=== PATIENT | male | born 1990 | race Hispanic/Latino ===

== ENCOUNTER 2017-12-26 21:00 | Inpatient (IN) | payer MEDICAID, OTHER ==
[2017-12-26 21:01] VITALS: BMI 23.5
[2017-12-26 23:37] LABS: BASO % 0.4 % (0.0-2.0); EOS % 0.1 % (0.0-4.0); HEMOGLOBIN 14.5 g/dL (12.0-18.0); LYMPH # 1.3 K/uL (1.0-4.3); LYMPH % 21.5 % (20.0-40.0); MEAN CORPUSCULAR HEMOGLOBIN 30.4 pg (27.0-31.0); MEAN CORPUSCULAR HGB CONC 34.5 g/dL (33.0-37.0); MEAN PLATELET VOLUME 9.4 fL (7.2-11.7); MONO # 0.5 K/uL (0.0-0.8); MONO % 7.8 % (0.0-10.0); NEUT # 4.3 K/uL (1.8-7.0); NEUT % 70.2 % (50.0-75.0); RBC 4.77 Mil/uL (4.40-5.90); URINE BILIRUBIN NEGATIVE (NEGATIVE); URINE BLOOD NEGATIVE (NEGATIVE); URINE CLARITY Clear (Clear); URINE COLOR Yellow (YELLOW); URINE GLUCOSE (UA) NORMAL (Normal); URINE LEUKOCYTE ESTERASE NEG Leu/uL (Negative); URINE NITRATE NEGATIVE (NEGATIVE); URINE PROTEIN NEGATIVE (NEGATIVE); WHITE BLOOD COUNT 6.1 K/uL (4.8-10.8)
[2017-12-26 23:48] LABS: BARBITURATES, UR NEGATIVE (NEGATIVE); BENZODIAZEPINES, UR NEGATIVE (NEGATIVE); OPIATES, UR NEGATIVE (NEGATIVE); PHENCYCLIDINE, UR NEGATIVE (NEGATIVE)
[2017-12-26 23:51] LABS: ALB/GLOB RATIO 1.2 (1.0-2.1); ALBUMIN 4.4 g/dL (3.5-5.0); ALT/SGPT 31 U/L (21-72); AST/SGOT 18 U/L (17-59); BLOOD UREA NITROGEN 12 mg/dL (9-20); CALCIUM 9.2 mg/dl (8.6-10.4); GFR AFRICAN-AMERICAN > 60; GFR NON-AFRICAN AMERICAN > 60
--- NOTE | 2017-12-27 00:25 | C.PDOC ---
History Of Present Illness Pt states he has stopped taking his haldol about a month ago and has been hearing voices, and felt like he wants to jump in front of a car. denies any homicidal ideation. Pleasant and cooperative Time Seen by Provider: 12/27/17 00:25 Chief Complaint (Nursing): Psychiatric Evaluation History Per: Patient History/Exam Limitations: no limitations Onset/Duration Of Symptoms: Days Current Symptoms Are (Timing): Still Present Suicide/Self Injury Attempted (Context): None Modifying Factor(s): None Severity: Moderate Pain Scale Rating Of: 4 Associated Symptoms: Depression, Paranoia Involuntary Hold By: None Recent travel outside of the [place]: No Additional History Per: Patient Past Medical History Reviewed: Historical Data, Nursing Documentation, Vital Signs Vital Signs: Last Vital Signs Temp 102.9 F H 12/26/17 22:22 Pulse 112 H 12/26/17 22:22 Resp 22 12/26/17 22:22 BP 116/80 12/26/17 22:22 Pulse Ox 98 12/27/17 00:28 - Medical History PMH: Asthma, Depression, Paranoia, Schizophrenia Denies: Diabetes, Hepatitis, HIV, HTN, Chronic Kidney Disease, Seizures, Sexually Transmitted Disease - [facility] PSYCHIAT DRUG THERAP NEC (05/11/14) Family History: States: No Known Family Hx - Social History Hx Tobacco Use: No Hx Alcohol Use: No Hx Substance Use: Yes - Immunization History Hx Tetanus Toxoid Vaccination: No Hx Influenza Vaccination: No Hx Pneumococcal Vaccination: No Review Of Systems Constitutional: Negative for: Fever, Chills ENT: Negative for: Throat Pain Cardiovascular: Negative for: Chest Pain Respiratory: Negative for: Shortness of Breath Gastrointestinal: Negative for: Nausea Musculoskeletal: Negative for: Back Pain Skin: Negative for: Rash Neurological: Negative for: Headache Psych: Positive for: Depression Physical Exam - Physical Exam Appears: Non-toxic, No Acute Distress Skin: Warm, Dry Head: Normacephalic Eye(s): bilateral: Normal Inspection Oral Mucosa: Moist Neck: Supple Chest: Symmetrical Cardiovascular: Rhythm Regular Respiratory: No Rales, No Rhonchi, No Wheezing Gastrointestinal/Abdominal: Soft, No Tenderness, No Distention Back: Normal Inspection Extremity: Normal ROM Extremity: Bilateral: Atraumatic Neurological/Psych: Oriented x3, Normal Speech, Normal Cognition ED Course And Treatment - Laboratory Results Result Diagrams: 12/26/17 23:27 12/26/17 23:27 O2 Sat by Pulse Oximetry: 98 [address] D[address].: Fazal Richmond Comment: accepted the pt on his service and took over the care at 1:09 AM Counseled Patient/Family Regarding: Studies Performed, Diagnosis - Disposition Disposition: HOSPITALIZED Disposition Time: 00:25 Condition: FAIR Forms: [facility] ([place]) - POA Present On Arrival: None - Clinical Impression Clinical Impression: Paranoid schizophrenia Decision To Admit - Pt Status Changed To: Hospital Disposition Of: Inpatient - Admit Certification Admit to Inpatient:: After my assessment, the patient will require hospitalization for at least two midnights. This is because of the severity of symptoms shown, intensity of services needed, and/or the medical risk in this patient being treated as an outpatient. - InPatient: Physician Admission Certification: I certify that this patient requires 2 or more midnights of care for the following reason:: After my assessment, the patient will require hospitalization for at least two midnights. This is because of the severity of symptoms shown, intensity of services needed, and/or the medical risk in this patient being treated as an outpatient. - . Bed Request Type: Psychiatry Admitting Physician: Fazal Richmond Patient Diagnosis: Paranoid schizophrenia
--- NOTE | 2017-12-27 02:29 | PCM.BM ---
<Jamia Manzanares - Last Filed: 12/27/17 02:27> Treatment Plan Problems - Problems identified on initial assessmt Suicidal Ideation Date Initiated: 12/27/17 Time Initiated: 02:30 Assessment reference: NA Status: Active Auditory Hallucinations Date Initiated: 12/27/17 Time Initiated: 02:30 Assessment reference: NA Status: Active Treatment assets and liabiliti Patient Assests: cooperative, ADL independent, negotiates basic needs Patient Liabilities: financial problems, poor support system - Milieu Protocol Maintain good personal hygiene: daily Encourage regular showers, daily Remind patient to perform daily oral care, daily Assist patient to perform ADL's Conduct patient checks and document Observation sheet: Q15 minutes Maintain personal safety: every shift Educate patient to report safety concerns to staff, every shift Monitor environment for contraband/sharps Medication safety: Monitor for expected outcome, potential side effects: every shift, Assess barriers to learning: every shift, Assess readiness for medication education: every shift <Mirtha Murdock - Last Filed: 12/31/17 10:43> Family Contact Family involvement: Famliy/SO not involved - Goals for Treatment Patient goals for treatment: "I need medication." Discharge/Continuing Care - Education Needs Education Needs: Patient Medication, Patient Coping Skills, Patient Placement options, Patient Community resources - Discharge Discharge Criteria: Tolerates medication w/o severe side effects, Reduction of target symptoms Discharge to:: Senior Living - Treatment Team Participation Discussed with Family/SO: No Was Patient/Family/SO present at Treatment Team Meeting: Yes <Zakia Weinberg - Last Filed: 12/31/17 10:44> - Diagnosis (1) Paranoid schizophrenia Status: Acute Interventions: 12/31/17 10:44 * Assess/adjust medications daily and /or as needed * See patient on an individual basis 7x/week to assess status of hallucinations * Discuss risks, benefits, side effects and alternatives of medications *
--- NOTE | 2017-12-27 11:44 | PCM.PSYCH ---
Initial Psychiatric Evaluation - Initial Psychiatric Evaluation Type of Admission: Voluntary Legal Status: Capacity Chief Complaint (in patient's own words): "Depressed" History of Present Illness and Precipitating Events: The patient is seen, chart reviewed and case discussed. This is a 27-year-old male, single with no child, currently homeless and unemployed. He says he was living in [facility] recently. He says he is "getting worse." He reports hearing voices telling him to kill himself and also feeling paranoid. He currently denies any suicidal or homicidal ideation but looks somewhat internally preoccupied. He also reports depressive symptoms but he states they are not to backs. He smokes marijuana and denies alcohol, cigarettes and other drugs. He is noncompliant with his medications. He was here in 2016 and was put on Risperdal. Past psych history: Diagnosed with schizophrenia or schizoaffective disorder. Admitted to psychiatry 3 times and had one suicide attempt when he was 22 years old by cutting his wrist. Family psych history: Mother also has schizophrenia. Medical history: Asthma Current Medications: Active Medications Generic Name Dose Route Start Last Admin Trade Name Freq PRN Reason Stop Dose Admin Benztropine Mesylate 0.5 mg 12/27/17 10:00 12/27/17 10:04 Cogentin PO 0.5 mg BID MARY Administration Haloperidol 5 mg 12/27/17 08:53 Haldol PO Q1H PRN agitation, max 4x/24h Hydroxyzine HCl 50 mg 12/27/17 08:53 Atarax PO Q4H PRN Anxiety Ibuprofen 600 mg 12/27/17 08:53 Motrin Tab PO Q6H PRN Pain, moderate (4-7) Pneumococcal Polyvalent Vaccine 0.5 ml 12/30/17 10:00 Pneumovax 23 Vaccine IM 12/30/17 10:01 .ONCE ONE Risperidone 1 mg 12/27/17 10:00 12/27/17 10:04 Risperdal Tab PO 1 mg BID MARY Administration Trazodone HCl 100 mg 12/27/17 08:53 Desyrel PO HS PRN Insomnia Past Psychiatric History - Past Psychiatric History Previous Treatment History: Inpatient Pertinent Medical Hx (Current Medical&Sleep Prob, Allergies): Allergies Allergy/AdvReac Type Severity Reaction Status Date / Time shrimp Allergy Verified 02/09/18 22:26 Benztropine [Cogentin] 1 mg PO QPM #30 tab 08/21/16 risperiDONE [RisperDAL Tab] 3 mg PO QPM #30 tab 08/21/16 Review of Systems - Psychiatric Psychiatric: Abnormal Sleep Pattern, Anhedonia, Anxiety, Behavioral Changes, Depression, Difficulty Concentrating, Hallucinations, Mood Swings, Paranoia. absent: Homicidal Ideation, Suicidal Ideation Mental Status Examination - Personal Presentation Personal Presentation: Looks stated age - Affect Affect: Blunted - Motor Activity Motor Activity: Calm - Reliability in Providing Information Reliability in Providing Information: Good - Speech Speech: Organized - Mood Mood: Depressed, Anxious - Formal Thought Process Formal Thought Process: Hallucinations, Paranoia - Cognitive Functions Orientation: Person, Place, Situation, Time Sensorium: Drowsy Attention/Concentration: Easily distracted Abstract Thinking: [place] Estimate of Intelligence: Below average Judgement: Intact, as evidence by: Insight regarding need for hospitalization Memory: Recent intact, as evidence by: Ability to recall events of the day, Remote intact, as evidenced by: Abilit to recall sig. life events - Risk Risk: Diminished functioning - Strength & Assets Inventory Strength & Assets Inventory: Cooperative - Limitations Limitations: Living alone DSM 5 DX - DSM 5 DSM 5 Diagnosis: schizoaffective disorder-depressed Cannabis use disorder, severe - Recommended/Plan of Treatment Treatment Recommendations and Plan of Treatment: Risperdal and Cogentin for psychosis Lexapro for depression As needed medications All risks, benefits and alternatives of the meds discussed, and the pt agreed and understood. Attend groups and activities Supportive therapy and psychoeducation [place] for abstinence CBT for relapse prevention Encourage MAT Refer to rehab or IOP, and self-help groups 34 min Projected ELOS: 5 days Prognosis: good with treatment
[2017-12-27] MEDS ORDERED: Albuterol HFA 90 mcg/actuation (8 g) INH PRN (13:06)
--- NOTE | 2017-12-28 13:27 | PCM.PYCHPN ---
Psychiatric Progress Note - Psychiatric Progress Note Patient seen today, length of contact: 16 min Patient Chief Complaint: "Not good" Problems Identified/Issues Discussed: The pt is seen, chart reviewed, case discussed with staff. The pt is compliant with medications and reports no side-effects. Symptoms are improving but needs more time to stabilize. still very isolated, odd After care discussed, support and psychoeducation given. Medication Change: Yes (increase risperdal to 3 mg/d) Medical Record Reviewed: Yes Mental Status Examination - Cognitive Function Orientation: Person, Place, Situation, Time Memory: Impaired Attention: Poor Concentration: Poor Association: WNL Fund of Knowledge: Poor - Mood Mood: Depressed, Anxious - Affect Affect: Blunted - Speech Speech: Appropriate - Formal Thought Process Formal Thought Process: Hallucinations, Paranoia - Suicidal Ideation Suicidal Ideation: No - Homicidal Ideation Homicidal Ideation: No Goal/Treatment Plan - Goal/Treatment Plan Need for Continued Stay: Discharge may exacerbated symptoms, Severe functional impairment Progress Toward Problem(s) and Goals/Treatment Plan: Risperdal and Cogentin for psychosis Lexapro for depression As needed medications All risks, benefits and alternatives of the meds discussed, and the pt agreed and understood. Attend groups and activities Supportive therapy and psychoeducation [place] for abstinence CBT for relapse prevention Encourage MAT Refer to rehab or IOP, and self-help groups
--- NOTE | 2017-12-29 11:31 | PCM.PYCHPN ---
Psychiatric Progress Note - Psychiatric Progress Note Patient seen today, length of contact: 16 min Problems Identified/Issues Discussed: Patient seen and evaluated, chart reviewed and discussed with the nurse. Patient remained disorganized and internally preoccupied. Patient remained isolated, confined and withdrawn. He still reports of hearing voices. Patient still appears paranoid and delusional. He reports depressed mood and feelings of hopelessness and helplessness. Patient is compliant with medications and denies any side effects. Symptoms are improving but need more time to stabilize. Support and psychoeducation given. Medication Change: Yes (increase risperdal to 3 mg/d) Medical Record Reviewed: Yes Mental Status Examination - Cognitive Function Orientation: Person, Place, Situation, Time Memory: Impaired Attention: Poor Concentration: Poor Association: WNL Fund of Knowledge: Poor - Mood Mood: Depressed, Anxious - Affect Affect: Blunted - Speech Speech: Appropriate - Formal Thought Process Formal Thought Process: Hallucinations, Paranoia - Suicidal Ideation Suicidal Ideation: No - Homicidal Ideation Homicidal Ideation: No Goal/Treatment Plan - Goal/Treatment Plan Need for Continued Stay: Discharge may exacerbated symptoms, Severe functional impairment Progress Toward Problem(s) and Goals/Treatment Plan: Schizoaffective disorder-depressed Cannabis use disorder, severe Risperdal and Cogentin for psychosis Lexapro for depression As needed medications All risks, benefits and alternatives of the meds discussed, and the pt agreed and understood. Attend groups and activities Supportive therapy and psychoeducation CBT Encourage MAT
[2017-12-30] MEDS ORDERED: Pneumococcal 23-Valent Vaccine IM ONE (10:00)
[2017-12-30] MEDS ORDERED: Influenza Vaccine 60 mcg/0.5 mL SYR (4YR UP) IM ONE (10:00)
--- NOTE | 2017-12-30 15:14 | PCM.PYCHPN ---
Psychiatric Progress Note - Psychiatric Progress Note Patient seen today, length of contact: 16 min Patient Chief Complaint: "I'm feeling better, but still depressed. I'm still hearing voices off and on that tell me to hurt myself, but they stop after I take the medication." Problems Identified/Issues Discussed: Patient seen and evaluated, chart reviewed and discussed with the nurse. As per the staff, Patient remained isolated, confined and withdrawn. He remained disorganized and internally preoccupied. He still appears paranoid and delusional and reports of hearing voices. He reports depressed mood and feelings of hopelessness and helplessness. Patient is compliant with medications and denies any side effects. Symptoms are improving but need more time to stabilize. Support and psychoeducation given. Medication Change: Yes (increase risperdal to 3 mg/d) Medical Record Reviewed: Yes Mental Status Examination - Cognitive Function Orientation: Person, Place, Situation, Time Memory: Impaired Attention: Poor Concentration: Poor Association: WNL Fund of Knowledge: Poor - Mood Mood: Depressed, Anxious - Affect Affect: Blunted - Speech Speech: Appropriate - Formal Thought Process Formal Thought Process: Hallucinations, Paranoia - Suicidal Ideation Suicidal Ideation: No - Homicidal Ideation Homicidal Ideation: No Goal/Treatment Plan - Goal/Treatment Plan Need for Continued Stay: Discharge may exacerbated symptoms, Severe functional impairment Progress Toward Problem(s) and Goals/Treatment Plan: Risperdal 3 mg PO QHS Cogentin 1 mg PO QHS Lexapro for depression As needed medications All risks, benefits and alternatives of the meds discussed, and the pt agreed and understood. Attend groups and activities Supportive therapy and psychoeducation [place] for abstinence CBT for relapse prevention Encourage MAT Refer to rehab or IOP, and self-help groups - Smoking Cessation Smoking Cessation Initiated: No
--- NOTE | 2017-12-31 10:44 | PCM.PYCHPN ---
Psychiatric Progress Note - Psychiatric Progress Note Patient seen today, length of contact: 16 min Patient Chief Complaint: "I'm still hearing voices off and on that tell me to hurt myself." Problems Identified/Issues Discussed: Patient seen and evaluated, chart reviewed and discussed with the nurse. Patient remained disorganized and internally preoccupied. He still reports of hearing voices and still appears paranoid and delusional. He reports depressed mood and feelings of hopelessness and helplessness. Patient remained isolated, confined and withdrawn. Pt met with the treatment team today and aftercare was discussed. Patient is compliant with medications and denies any side effects. Symptoms are improving but need more time to stabilize. Support and psychoeducation given. Medication Change: Yes (increase risperdal to 3 mg HS and I mg po Daily) Medical Record Reviewed: Yes Mental Status Examination - Cognitive Function Orientation: Person, Place, Situation, Time Memory: Impaired Attention: Poor Concentration: Poor Association: WNL Fund of Knowledge: Poor - Mood Mood: Depressed, Anxious - Affect Affect: Blunted - Speech Speech: Appropriate - Formal Thought Process Formal Thought Process: Hallucinations, Paranoia - Suicidal Ideation Suicidal Ideation: No - Homicidal Ideation Homicidal Ideation: No Goal/Treatment Plan - Goal/Treatment Plan Need for Continued Stay: Discharge may exacerbated symptoms, Severe functional impairment Progress Toward Problem(s) and Goals/Treatment Plan: Schizoaffective disorder-depressed Cannabis use disorder, severe Increase Risperdal and Cogentin for psychosis Lexapro for depression As needed medications All risks, benefits and alternatives of the meds discussed, and the pt agreed and understood. Attend groups and activities Supportive therapy and psychoeducation CBT Encourage MAT - Smoking Cessation Smoking Cessation Initiated: No
--- NOTE | 2018-01-01 10:47 | PCM.PYCHPN ---
Psychiatric Progress Note - Psychiatric Progress Note Patient seen today, length of contact: 16 min Patient Chief Complaint: "I'm feeling better, but still depressed. I'm still hearing voices off and on that tell me to hurt myself, but they stop after I take the medication." Problems Identified/Issues Discussed: Patient seen and evaluated, chart reviewed and discussed with the nurse. As per the staff, Patient remained isolated, confined and withdrawn. He remained disorganized and internally preoccupied. He still appears paranoid and delusional and reports of hearing voices. He reports depressed mood and feelings of hopelessness and helplessness. Patient is compliant with medications and denies any side effects. Symptoms are improving but need more time to stabilize. Support and psychoeducation given. Medication Change: Yes (increase risperdal to 3 mg/d) Medical Record Reviewed: Yes Mental Status Examination - Cognitive Function Orientation: Person, Place, Situation, Time Memory: Impaired Attention: Poor Concentration: Poor Association: WNL Fund of Knowledge: Poor - Mood Mood: Depressed, Anxious - Affect Affect: Blunted - Speech Speech: Appropriate - Formal Thought Process Formal Thought Process: Hallucinations, Paranoia - Suicidal Ideation Suicidal Ideation: No - Homicidal Ideation Homicidal Ideation: No Goal/Treatment Plan - Goal/Treatment Plan Need for Continued Stay: Discharge may exacerbated symptoms, Severe functional impairment Progress Toward Problem(s) and Goals/Treatment Plan: CBT for relapse prevention Encourage MAT [place] for abstinence Refer to rehab or IOP, and self-help groups Supportive therapy and psychoeducation As needed medications All risks, benefits and alternatives of the meds discussed, and the pt agreed and understood. Attend groups and activities Risperdal 3 mg PO QHS Increase Risperdal 1 mg P ODaily Cogentin 1 mg PO QHS Lexapro 10 mg for depression Trazodone 100 mg po QHS Plan is to put pt on Invega alexandra
[2018-01-02 08:22] LABS: BASO # 0.1 K/uL (0.0-0.2); BASO % 0.5 % (0.0-2.0); EOS % 0.1 % (0.0-4.0); HEMOGLOBIN 14.5 g/dL (12.0-18.0); LYMPH # 1.2 K/uL (1.0-4.3); LYMPH % 10.6 % (20.0-40.0); MEAN CELL VOLUME 87.7 fL (80.0-94.0); MEAN CORPUSCULAR HEMOGLOBIN 30.1 pg (27.0-31.0); MEAN CORPUSCULAR HGB CONC 34.4 g/dL (33.0-37.0); MEAN PLATELET VOLUME 9.2 fL (7.2-11.7); MONO # 0.5 K/uL (0.0-0.8); MONO % 4.6 % (0.0-10.0); NEUT # 9.7 K/uL (1.8-7.0); NEUT % 84.2 % (50.0-75.0); RBC 4.82 Mil/uL (4.40-5.90); RED CELL DISTRIBUTION WIDTH 13.1 % (11.5-14.5); WHITE BLOOD COUNT 11.5 K/uL (4.8-10.8)
[2018-01-02 08:41] LABS: ALB/GLOB RATIO 1.2 (1.0-2.1); ALBUMIN 3.9 g/dL (3.5-5.0); ALT/SGPT 24 U/L (21-72); AST/SGOT 19 U/L (17-59); BLOOD UREA NITROGEN 10 mg/dL (9-20); CALCIUM 8.8 mg/dl (8.6-10.4); GFR AFRICAN-AMERICAN > 60; GFR NON-AFRICAN AMERICAN > 60
--- NOTE | 2018-01-02 10:29 | PCM.PYCHPN ---
Psychiatric Progress Note - Psychiatric Progress Note Patient seen today, length of contact: 16 min Patient Chief Complaint: "I'm feeling little better." Problems Identified/Issues Discussed: Patient seen and evaluated, chart reviewed and discussed with the nurse. Pt appeared more organized and less internally preoccupied. He appears less paranoid and less delusional but still reports of hearing voices. He reports some improvement in his mood and some improvement in the feelings of hopelessness and helplessness. He remained isolated and withdrawn. Patient is compliant with medications and denies any side effects. Symptoms are improving but need more time to stabilize. Support and psychoeducation given. Medication Change: Yes (increase risperdal) Medical Record Reviewed: Yes Mental Status Examination - Cognitive Function Orientation: Person, Place, Situation, Time Memory: Impaired Attention: Poor Concentration: Poor Association: WNL Fund of Knowledge: Poor - Mood Mood: Depressed, Anxious - Affect Affect: Blunted - Speech Speech: Appropriate - Formal Thought Process Formal Thought Process: Hallucinations, Delusions, Paranoia - Suicidal Ideation Suicidal Ideation: No - Homicidal Ideation Homicidal Ideation: No Goal/Treatment Plan - Goal/Treatment Plan Need for Continued Stay: Discharge may exacerbated symptoms, Severe functional impairment Progress Toward Problem(s) and Goals/Treatment Plan: CBT for relapse prevention Encourage MAT [place] for abstinence Refer to rehab or IOP, and self-help groups Supportive therapy and psychoeducation As needed medications All risks, benefits and alternatives of the meds discussed, and the pt agreed and understood. Attend groups and activities Risperdal 4 mg PO QHS Increase Risperdal 1 mg PO Daily Cogentin 1 mg PO QHS Lexapro 10 mg for depression Trazodone 100 mg po QHS Invega sustenna 156 mg I/M - Smoking Cessation Smoking Cessation Initiated: No
--- NOTE | 2018-01-02 19:42 | CP.PCM.CON ---
<Hira Esaclona - Last Filed: 01/02/18 21:34> History of Present Illness - History of Present Illness History of Present Illness: CC: Cough HPI: Patient is a 27 year old male with past medical history of asthma (last attack in 1999), questionable history of hyperthyroidism, Herpes (diagnosed in 2012), who was admitted to psychiatry unit for suicidal ideation and paranoia. Medicine consultation was placed for complaints of cough. During the encounter, patient reports 1 week history of progressively worsening nonproductive cough, accompanied by head/nasal congestion, headache, and fever to 100 F at home. Patient took Tylenol at home with good improvement in the headache. He did not get the influenza vaccine. Denies history of other recent illness. Patient has a history of asthma (last attack in 1999) for which he does not take medication at home. Otherwise he denies chills, chest pain, shortness of breath, abdominal pain, diarrhea, constipation, nausea, or vomiting. Patient notes that during a psychiatric admission 1 year ago, he was told that he has a problem with his thyroid but did not follow-up with a physician or take medication for it. PMH: asthma (last attack in 1999), questionable history of hyperthyroidism, Herpes (diagnosed in 2012) PSH: tonsillectomy at age 2-3 (no complications) Family History: no known history of heart disease, DM, HTN Medications: denies taking any medications at home besides Tylenol Allergies: Denies drug allergies; has allergy to shrimp Social History: currently homeless; no current or history of tobacco use; drinks "a few" 24oz beers a couple of times per month; uses marijuana 1x/month; denies other recreational drug use Review of Systems - Constitutional Constitutional: Fever. absent: Chills - EENT Eyes: absent: Blurred Vision, Change in Vision - Cardiovascular Cardiovascular: absent: Chest Pain, Chest Pain at Rest, Chest Pain with Activity , Dyspnea on Exertion, Lightheadedness, Orthopnea, Palpitations, Paroxysmal Nocturnal Dyspnea, Pedal Edema - Respiratory Respiratory: Cough. absent: Dyspnea, Wheezing, Chest Congestion, Excessive Mucous Production, Change in Mucous Color, Pain with Coughing - Gastrointestinal Gastrointestinal: absent: Abdominal Pain, Cramping, Diarrhea, Nausea, Vomiting - Neurological Neurological: absent: Dizziness - Psychiatric Psychiatric: Paranoia, Suicidal Ideation - Endocrine Endocrine: absent: Fatigue, Palpitations Past Patient History - Infectious Disease Hx of Infectious Diseases: None - Tetanus Immunizations Tetanus Immunization: Unknown - Past Social History Smoking Status: Never Smoked - CARDIAC Hx Cardiac Disorders: No Hx Hypertension: No - PULMONARY Hx Tuberculosis: No - NEUROLOGICAL HX Cerebrovascular Accident: No Hx Seizures: No - HEENT Hx HEENT Problems: No Hx Cataracts: No Hx Deafness: No Hx Difficulty Chewing: No Hx Epistaxis: No Hx Glaucoma: No Hx Macular Degeneration: No Hx Sinusitis: No - RENAL Hx Chronic Kidney Disease: No - ENDOCRINE/METABOLIC Hx Endocrine Disorders: No Hx Adrenal Cancer: No Hx Diabetes Insipidus: No Hx Diabetes Mellitus Type 1: No Hx Diabetes Mellitus Type 2: No Hx Hyperthyroidism: No Hx Hypothyroidism: No Hx Systemic Lupus Erythematosus: No - HEMATOLOGICAL/ONCOLOGICAL Hx Blood Disorders: No Hx Cancer: No Hx Human Immunodeficiency Virus (HIV): No - INTEGUMENTARY Hx Dermatological Problems: No Hx Basil Cell: No Hx Arora: No Hx Cellulitis: No Hx Eczema: No Hx Melanoma: No Hx Psoriasis: No Hx Squamous Cell: No - MUSCULOSKELETAL/RHEUMATOLOGICAL Hx Musculoskeletal Disorders: No Hx Arthritis: No Hx Back Pain: No Hx Degenerative Joint Disease: No Hx Falls: No Hx Fractures: No Hx Gout: No Hx Herniated Disk: No Hx Myasthenia Gravis: No Hx Osteoarthritis: No Hx Osteomyelitis: No Hx Osteoporosis: No Hx Rhabdomyolysis: No Hx Rheumatoid Arthritis: No Hx Spinal Stenosis: No Hx Unsteady Gait: No - GASTROINTESTINAL Hx Gastrointestinal Disorders: No Hx Colostomy: No Hx Gastroesophageal Reflux: No Hx Ileostomy: No Hx Liver Failure: No HX Swallowing Problems: No Hx Ulcer: No - GENITOURINARY/GYNECOLOGICAL Hx Sexually Transmitted Disorders: No - PSYCHIATRIC Hx Substance Use: Yes - SURGICAL HISTORY Hx Surgeries: No Hx Amputation: No Hx Cardiac Catheterization: No Hx Gastric Bypass Surgery: No Hx Hysterectomy: No Hx Joint Replacement: No Hx Kidney Transplant: No Hx Liver Transplant: No Hx Mastectomy: No Hx Musculoskeletal Surgery: No Hx Open Heart Surgery: No Hx Orthopedic Surgery: No Hx Splenectomy: No Hx Valve Replacement: No - ANESTHESIA Hx Anesthesia: No Meds Allergies/Adverse Reactions: Allergies Allergy/AdvReac Type Severity Reaction Status Date / Time shrimp Allergy Verified 12/26/17 22:26 - Medications Medications: Current Medications Acetaminophen (Tylenol 325mg Tab) 650 mg PO Q6 PRN PRN Reason: Fever >100.4 F Last Admin: 01/02/18 16:09 Dose: 650 mg Albuterol (Ventolin Hfa 90 Mcg/Actuation (8 G)) 1 puff INH RQ4 PRN PRN Reason: Wheezing Benztropine Mesylate (Cogentin) 0.5 mg PO BID [facility] Last Admin: 01/02/18 17:04 Dose: 0.5 mg Escitalopram Oxalate (Lexapro) 20 mg PO DAILY [facility] Last Admin: 01/02/18 10:33 Dose: 20 mg Fluticasone Propionate (Flonase) 1 spr ARTURO BID [facility] Haloperidol (Haldol) 5 mg PO Q1H PRN PRN Reason: agitation, max 4x/24h Hydroxyzine HCl (Atarax) 50 mg PO Q4H PRN PRN Reason: Anxiety Ibuprofen (Motrin Tab) 600 mg PO Q6H PRN PRN Reason: Pain, moderate (4-7) Last Admin: 01/01/18 23:01 Dose: 600 mg Risperidone (Risperdal Tab) 3 mg PO QPM [facility] Last Admin: 01/02/18 17:05 Dose: 3 mg Risperidone (Risperdal Tab) 1 mg PO DAILY [facility] Last Admin: 01/02/18 10:32 Dose: 1 mg Trazodone HCl (Desyrel) 100 mg PO HS PRN PRN Reason: Insomnia Physical Exam - Constitutional Appears: Well, No Acute Distress - Head Exam Head Exam: ATRAUMATIC, NORMAL INSPECTION - Eye Exam Eye Exam: EOMI, Normal appearance - ENT Exam ENT Exam: Mucous Membranes Moist - Respiratory Exam Respiratory Exam: Clear to Auscultation Bilateral, NORMAL BREATHING PATTERN. absent: Prolonged Expiratory Phase, Rhonchi, Wheezes, Respiratory Distress - Cardiovascular Exam Cardiovascular Exam: REGULAR RHYTHM, +S1, +S2 - GI/Abdominal Exam GI & Abdominal Exam: Normal Bowel Sounds, Soft. absent: Distended, Firm, Guarding, Hernia, Tenderness - Extremities Exam Extremities exam: Positive for: normal inspection. Negative for: calf tenderness, pedal edema, tenderness - Neurological Exam Neurological exam: Alert, Oriented x3 - Psychiatric Exam Psychiatric exam: Normal Affect, Normal Mood - Skin Skin Exam: Normal Color Results - Vital Signs Recent Vital Signs: Last Vital Signs Temp 98.7 F 01/02/18 16:30 Pulse 88 01/02/18 16:30 Resp 20 01/02/18 16:30 BP 108/78 01/02/18 16:30 Pulse Ox 100 01/02/18 16:30 - Labs Result Diagrams: 01/02/18 08:15 01/02/18 08:15 Labs: Laboratory Results - last 24 hr 01/02/18 01/02/18 01/02/18 08:15 08:15 16:15 WBC 11.5 H D RBC 4.82 Hgb 14.5 Hct 42.3 MCV 87.7 MCH 30.1 MCHC 34.4 RDW 13.1 Plt Count 196 MPV 9.2 Neut % (Auto) 84.2 H Lymph % (Auto) 10.6 L [place] % (Auto) 4.6 Eos % (Auto) 0.1 Baso % (Auto) 0.5 Neut # (Auto) 9.7 H Lymph # (Auto) 1.2 [place] # (Auto) 0.5 Eos # (Auto) 0.0 Baso # (Auto) 0.1 Sodium 135 Potassium 4.2 Chloride 98 Carbon Dioxide 26 Anion Gap 16 BUN 10 Creatinine 1.4 Est GFR ( Amer) > 60 Est GFR (Non-Af Amer) > 60 Random Glucose 106 Calcium 8.8 Total Bilirubin 0.7 AST 19 ALT 24 Alkaline Phosphatase 57 Total Protein 7.3 Albumin 3.9 Globulin 3.4 Albumin/Globulin Ratio 1.2 Influenza Typ A,B (EIA) Negative for flu a/b Assessment & Plan (1) Cough Assessment and Plan: With leukocytosis: 11.5, r/o pneumonia Imaging: Chest X-ray: f/u official report Labs: * F/u Legionella, Myco. Pneumoniae and strep pneumoniae and procalcitonin Medications: Avelox 400mg PO daily Albuterol RQ4H Flonase 1 spray BID Status: Acute (2) Leukocytosis Assessment and Plan: WBC: 11.5 Labs:F/u Legionella, Myco. Pneumoniae and strep pneumoniae and procalcitonin and blood culture Medications: Avelox 400mg PO daily Status: Acute (3) History of thyroid disease Assessment and Plan: F/u TSH Status: Acute (4) Schizophrenia Assessment and Plan: Pyschiatry, Dr. Weinbegr on board (Primary care team) * Management as per recommendation Status: Acute <Jayde Irene V - Last Filed: 01/03/18 10:13> Meds - Medications Medications: Current Medications Acetaminophen (Tylenol 325mg Tab) 650 mg PO Q6 PRN PRN Reason: Fever >100.4 F Last Admin: 01/02/18 16:09 Dose: 650 mg Albuterol (Ventolin Hfa 90 Mcg/Actuation (8 G)) 1 puff INH RQ4 PRN PRN Reason: Wheezing Benztropine Mesylate (Cogentin) 0.5 mg PO BID [facility] Last Admin: 01/02/18 17:04 Dose: 0.5 mg Escitalopram Oxalate (Lexapro) 20 mg PO DAILY [facility] Last Admin: 01/02/18 10:33 Dose: 20 mg Fluticasone Propionate (Flonase) 1 spr ARTURO BID [facility] Last Admin: 01/02/18 21:13 Dose: 1 spray Haloperidol (Haldol) 5 mg PO Q1H PRN PRN Reason: agitation, max 4x/24h Hydroxyzine HCl (Atarax) 50 mg PO Q4H PRN PRN Reason: Anxiety Ibuprofen (Motrin Tab) 600 mg PO Q6H PRN PRN Reason: Pain, moderate (4-7) Last Admin: 01/01/18 23:01 Dose: 600 mg Moxifloxacin HCl (Avelox) 400 mg PO DAILY [facility] Risperidone (Risperdal Tab) 3 mg PO QPM [facility] Last Admin: 01/02/18 17:05 Dose: 3 mg Risperidone (Risperdal Tab) 1 mg PO DAILY [facility] Last Admin: 01/02/18 10:32 Dose: 1 mg Trazodone HCl (Desyrel) 100 mg PO HS PRN PRN Reason: Insomnia Results - Vital Signs Recent Vital Signs: Last Vital Signs Temp 98.6 F 01/03/18 06:13 Pulse 67 01/03/18 06:13 Resp 20 01/03/18 06:13 BP 104/68 01/03/18 06:13 Pulse Ox 99 01/03/18 06:13 - Labs Result Diagrams: 01/03/18 07:34 01/03/18 07:34 Labs: Laboratory Results - last 24 hr 01/02/18 01/02/18 01/02/18 16:15 20:25 20:33 WBC RBC Hgb Hct MCV MCH MCHC RDW Plt Count MPV Neut % (Auto) Lymph % (Auto) [place] % (Auto) Eos % (Auto) Baso % (Auto) Neut # (Auto) Lymph # (Auto) [place] # (Auto) Eos # (Auto) Baso # (Auto) ESR Sodium Potassium Chloride Carbon Dioxide Anion Gap BUN Creatinine Est GFR ( Amer) Est GFR (Non-Af Amer) Random Glucose Calcium Phosphorus Magnesium Total Bilirubin AST ALT Alkaline Phosphatase C-React Prot High Sens > 15.00 H Total Protein Albumin Globulin Albumin/Globulin Ratio Procalcitonin 0.54 H TSH 3rd Generation Influenza Typ A,B (EIA) Negative for flu a/b Mycoplasma pneumon IgM 01/02/18 01/03/18 01/03/18 22:14 07:34 07:34 WBC 4.1 L D RBC 4.54 Hgb 13.9 Hct 39.3 MCV 86.4 MCH 30.5 MCHC 35.4 RDW 12.7 Plt Count 171 MPV 9.2 Neut % (Auto) 54.3 Lymph % (Auto) 33.1 [place] % (Auto) 9.3 Eos % (Auto) 2.4 Baso % (Auto) 0.9 Neut # (Auto) 2.2 Lymph # (Auto) 1.4 [place] # (Auto) 0.4 Eos # (Auto) 0.1 Baso # (Auto) 0.0 ESR 26 H Sodium 135 Potassium 3.9 Chloride 98 Carbon Dioxide 27 Anion Gap 14 BUN 12 Creatinine 0.9 Est GFR ( Amer) > 60 Est GFR (Non-Af Amer) > 60 Random Glucose 96 Calcium 8.8 Phosphorus 3.1 Magnesium 2.0 Total Bilirubin 0.6 AST 19 ALT 27 Alkaline Phosphatase 51 C-React Prot High Sens Total Protein 7.1 Albumin 3.7 Globulin 3.4 Albumin/Globulin Ratio 1.1 Procalcitonin TSH 3rd Generation 6.21 H Influenza Typ A,B (EIA) Mycoplasma pneumon IgM Negative Attending/Attestation - Attestation I have personally seen and examined this patient.: Yes I have fully participated in the care of the patient.: Yes I have reviewed all pertinent clinical information: Yes Notes (Text): This is late computer entry for 01/02/18. Patient seen, examined and case discussed with day time resident. Patient reports he has been having dry cough for the past week and half. Patient reports he had travelled in [place] and was previously hospitalized but cannot remember. Patient reports he has had fever, he has not been on antibiotics, reports runny nose, scratchy throat, denies nausea, denies vomitting, denies abdominal pain, denies diarrhea. Patient has completed chest xray PA and lateral. awaiting official report Will order EKG to establish baseline prior to start antibiotic Will check legionella. mycoplasma Igm, strep pneumonia, procalcition Flu is negative Patient reports he has hypothyroidism but cannot remember he is Assessment &Plan (1) Cough Assessment and Plan: * With leukocytosis: 11.5, r/o pneumonia Imaging: * Chest X-ray: f/u official report Labs: * F/u Legionella, Myco. Pneumoniae and strep pneumoniae and procalcitonin Medications: * Avelox 400mg PO daily , Albuterol RQ4H, Flonase 1 spray BID Status: Acute (2) Leukocytosis Assessment and Plan: * WBC: 11.5 * Labs:F/u Legionella, Myco. Pneumoniae and strep pneumoniae and procalcitonin and blood culture * Medications: Avelox 400mg PO daily Status: Acute (3) History of thyroid disease Assessment and Plan: * F/u TSH Status: Acute (4) Schizophrenia Assessment and Plan: * Pyschiatry, Dr. Weinberg on board (Primary care team) * Management as per recommendation Status: Acute
[2018-01-02] MEDS: Fluticasone Nasal 50 mcg/Spray NAS SCH (21:13)
[2018-01-03 07:38] LABS: BASO % 0.9 % (0.0-2.0); EOS # 0.1 K/uL (0.0-0.7); EOS % 2.4 % (0.0-4.0); HEMOGLOBIN 13.9 g/dL (12.0-18.0); LYMPH # 1.4 K/uL (1.0-4.3); LYMPH % 33.1 % (20.0-40.0); MEAN CELL VOLUME 86.4 fL (80.0-94.0); MEAN CORPUSCULAR HEMOGLOBIN 30.5 pg (27.0-31.0); MEAN CORPUSCULAR HGB CONC 35.4 g/dL (33.0-37.0); MEAN PLATELET VOLUME 9.2 fL (7.2-11.7); MONO # 0.4 K/uL (0.0-0.8); MONO % 9.3 % (0.0-10.0); NEUT # 2.2 K/uL (1.8-7.0); NEUT % 54.3 % (50.0-75.0); RBC 4.54 Mil/uL (4.40-5.90); RED CELL DISTRIBUTION WIDTH 12.7 % (11.5-14.5)
[2018-01-03 07:49] LABS: WHITE BLOOD COUNT 4.1 K/uL (4.8-10.8)
[2018-01-03 07:53] LABS: ALB/GLOB RATIO 1.1 (1.0-2.1); ALBUMIN 3.7 g/dL (3.5-5.0); ALT/SGPT 27 U/L (21-72); AST/SGOT 19 U/L (17-59); BLOOD UREA NITROGEN 12 mg/dL (9-20); CALCIUM 8.8 mg/dl (8.6-10.4); GFR AFRICAN-AMERICAN > 60; GFR NON-AFRICAN AMERICAN > 60
--- NOTE | 2018-01-03 08:54 | RAD ---
HISTORY: Fever 103, cough COMPARISON: Comparison is made with 08/10/2016 TECHNIQUE: Chest PA and lateral FINDINGS: LUNGS: No active pulmonary disease. PLEURA: No significant pleural effusion identified. No pneumothorax apparent. CARDIOVASCULAR: Normal. OSSEOUS STRUCTURES: No significant abnormalities. VISUALIZED UPPER ABDOMEN: Normal. OTHER FINDINGS: None. IMPRESSION: No active disease.
[2018-01-03] MEDS: Fluticasone Nasal 50 mcg/Spray NAS SCH ×2 (10:23→18:14)
--- NOTE | 2018-01-03 11:40 | CP.PCM.PN ---
<Antonio Sharma - Last Filed: 01/03/18 11:37> Subjective - Date & Time of Evaluation Date of Evaluation: 01/03/18 Time of Evaluation: 11:40 - Subjective Subjective: PGY2 Medicine Note for Dr. Irene who is on medical consult Patient seen and examined in 5E; still complaining of some cough although is improved; denies fevers/chills, KNOX, CP, SOB, abdominal pain, decreased exercise tolerance, dysuria/freq/urg or lower extremity pain/swelling. Objective - Vital Signs/Intake and Output Vital Signs (last 24 hours): Temp Pulse Resp BP Pulse Ox 98.6 F 67 20 104/68 99 01/03/18 06:13 01/03/18 06:13 01/03/18 06:13 01/03/18 06:13 01/03/18 06:13 - Medications Medications: Current Medications Acetaminophen (Tylenol 325mg Tab) 650 mg PO Q6 PRN PRN Reason: Fever >100.4 F Last Admin: 01/02/18 16:09 Dose: 650 mg Albuterol (Ventolin Hfa 90 Mcg/Actuation (8 G)) 1 puff INH RQ4 PRN PRN Reason: Wheezing Benzonatate (Tessalon Perles) 100 mg PO TID [facility] Benztropine Mesylate (Cogentin) 0.5 mg PO BID [facility] Last Admin: 01/03/18 10:22 Dose: 0.5 mg Escitalopram Oxalate (Lexapro) 20 mg PO DAILY [facility] Last Admin: 01/03/18 10:22 Dose: 20 mg Fluticasone Propionate (Flonase) 1 spr ARTURO BID [facility] Last Admin: 01/03/18 10:23 Dose: 1 spray Haloperidol (Haldol) 5 mg PO Q1H PRN PRN Reason: agitation, max 4x/24h Hydroxyzine HCl (Atarax) 50 mg PO Q4H PRN PRN Reason: Anxiety Ibuprofen (Motrin Tab) 600 mg PO Q6H PRN PRN Reason: Pain, moderate (4-7) Last Admin: 01/01/18 23:01 Dose: 600 mg Moxifloxacin HCl (Avelox) 400 mg PO DAILY [facility] Last Admin: 01/03/18 10:22 Dose: 400 mg Risperidone (Risperdal Tab) 3 mg PO QPM [facility] Last Admin: 01/02/18 17:05 Dose: 3 mg Risperidone (Risperdal Tab) 1 mg PO DAILY [facility] Last Admin: 01/03/18 10:22 Dose: 1 mg Saccharomyces Boulardii (Florastor) 250 mg PO BID [facility] Trazodone HCl (Desyrel) 100 mg PO HS PRN PRN Reason: Insomnia - Labs Labs: 01/03/18 07:34 01/03/18 07:34 - Constitutional Appears: Non-toxic - Head Exam Head Exam: ATRAUMATIC - Eye Exam Eye Exam: EOMI - ENT Exam ENT Exam: Mucous Membranes Moist - Neck Exam Neck Exam: absent: Lymphadenopathy, Tenderness, Thyromegaly - Respiratory Exam Respiratory Exam: NORMAL BREATHING PATTERN. absent: Rales, Rhonchi, Wheezes, Stridor - Cardiovascular Exam Cardiovascular Exam: REGULAR RHYTHM, +S1, +S2 - GI/Abdominal Exam GI & Abdominal Exam: Soft - Extremities Exam Extremities Exam: Full ROM. absent: Calf Tenderness - Back Exam Back Exam: absent: CVA tenderness (L), CVA tenderness (R) - Neurological Exam Neurological Exam: Alert, Awake, Oriented x3 - Psychiatric Exam Psychiatric exam: Normal Affect, Normal Mood - Skin Skin Exam: Warm Assessment and Plan - Assessment and Plan (Free Text) Assessment: Cough With leukocytosis: 11.5, r/o pneumonia Chest X-ray: no active disease Labs: * Legionella neg, Myco. Pneumoniae neg, procal mildly elevated Medications: Avelox 400mg PO daily; will need for 7 days total Albuterol RQ4H Flonase 1 spray BID Leukocytosis WBC: 11.5 down to 4.1 with no abx therapy Procal mildly elevated Bcx negative to date; f/u complete 5 days Medications: Avelox 400mg PO daily History of thyroid disease TSH ~6, f/u Free T4, TPO, and otilia workup -patient stated he had hyperthyroid; unclear if hypo or hyperthyroid Schizophrenia Pyschiatry, Dr. Weniberg on board (Primary care team) * Management as per recommendation Dispo: patient will need avelox for 7 days total -f/u thyroid studies case d/w with Dr. Irene <Jayde Irene V - Last Filed: 01/03/18 14:11> Objective - Vital Signs/Intake and Output Vital Signs (last 24 hours): Temp Pulse Resp BP Pulse Ox 98.6 F 67 20 104/68 99 01/03/18 06:13 01/03/18 06:13 01/03/18 06:13 01/03/18 06:13 01/03/18 06:13 - Medications Medications: Current Medications Acetaminophen (Tylenol 325mg Tab) 650 mg PO Q6 PRN PRN Reason: Fever >100.4 F Last Admin: 01/02/18 16:09 Dose: 650 mg Albuterol (Ventolin Hfa 90 Mcg/Actuation (8 G)) 1 puff INH RQ4 PRN PRN Reason: Wheezing Benzonatate (Tessalon Perles) 100 mg PO TID [facility] Benztropine Mesylate (Cogentin) 0.5 mg PO BID [facility] Last Admin: 01/03/18 10:22 Dose: 0.5 mg Escitalopram Oxalate (Lexapro) 20 mg PO DAILY [facility] Last Admin: 01/03/18 10:22 Dose: 20 mg Fluticasone Propionate (Flonase) 1 spr ARTURO BID [facility] Last Admin: 01/03/18 10:23 Dose: 1 spray Haloperidol (Haldol) 5 mg PO Q1H PRN PRN Reason: agitation, max 4x/24h Hydroxyzine HCl (Atarax) 50 mg PO Q4H PRN PRN Reason: Anxiety Ibuprofen (Motrin Tab) 600 mg PO Q6H PRN PRN Reason: Pain, moderate (4-7) Last Admin: 01/01/18 23:01 Dose: 600 mg Moxifloxacin HCl (Avelox) 400 mg PO DAILY [facility] Last Admin: 01/03/18 10:22 Dose: 400 mg Risperidone (Risperdal Tab) 3 mg PO QPM [facility] Last Admin: 01/02/18 17:05 Dose: 3 mg Risperidone (Risperdal Tab) 1 mg PO DAILY [facility] Last Admin: 01/03/18 10:22 Dose: 1 mg Saccharomyces Boulardii (Florastor) 250 mg PO BID [facility] Trazodone HCl (Desyrel) 100 mg PO HS PRN PRN Reason: Insomnia - Labs Labs: 01/03/18 07:34 01/03/18 07:34 Attending/Attestation - Attestation I have personally seen and examined this patient.: Yes I have fully participated in the care of the patient.: Yes I have reviewed all pertinent clinical information, including history, physical exam and plan: Yes Notes (Text): Patient seen, examined, and case discussed with medical equipment repair technician. Patient seen this morning on 5 E. Patient has not received anything to suppress the cough. Patient was ordered for Flonase but he reports he has not received it for runny nose. Reviewed EKG which appears normal at baseline. Will start Avelox 400 mg by mouth daily. White count improved to 4.1 we are awaiting blood cultures. Mycoplasma pneumonia negative. Awaiting legionella and strep. Patient does have a mildly elevated pro calcitonin signifying bacterial cause to warrant antibiotic treatment. Patient does have an elevated TSH awaiting free T4. Assessment/Plan (1) Cough Assessment and Plan: Imaging: * Chest X-ray (PA and Lateral): no active disease Labs: * F/u Legionella: pending, Myco. Pneumoniae: negative and strep pneumoniae: pending and procalcitonin:mildly elevated Medications: * Avelox 400mg PO daily , Albuterol RQ4H, Flonase 1 spray BID * Claire moore for cough Status: Acute (2) Leukopenic Assessment and Plan: * Medications: Avelox 400mg PO daily * check HIV screen * Florastor 250mg PO BID * Pending blood cultures Status: Acute (3) History of thyroid disease Assessment and Plan: * Elevated TSH * Awaiting Free T4, Thyroid peroxidase, Thyroglobulin Status: Acute (4) Schizophrenia Assessment and Plan: * Pyschiatry, Dr. Weinberg on board (Primary care team) * Management as per recommendation Status: Acute
[2018-01-03] MEDS: Saccharomyces Boulardi 250 mg Cap PO SCH (18:12)
--- NOTE | 2018-01-03 21:02 | PCM.PYCHPN ---
Psychiatric Progress Note - Psychiatric Progress Note Patient seen today, length of contact: 16 min Patient Chief Complaint: "I'm feeling good" Problems Identified/Issues Discussed: Patient seen and evaluated, chart reviewed. Nurse input received and case discussed with the nurse. Pt stated that he is feeling better. Pt reported decrease in frequency of AH. He appeared more organized and less internally preoccupied. He appears less paranoid and less delusional but still reports of hearing voices. He reports some improvement in his mood and some improvement in the feelings of hopelessness and helplessness. He remained isolated and withdrawn. Patient is compliant with medications and denies any side effects. Symptoms are improving but need more time to stabilize. Support and psychoeducation given. Medication Change: Yes (increase risperdal) Medical Record Reviewed: Yes Mental Status Examination - Cognitive Function Orientation: Person, Place, Situation, Time Memory: Impaired Attention: Poor Concentration: Poor Association: WNL Fund of Knowledge: Poor Decription of patient's judgement and insights: limited/limited - Mood Mood: Depressed, Anxious - Affect Affect: Blunted - Speech Speech: Appropriate - Formal Thought Process Formal Thought Process: Hallucinations, Delusions, Paranoia - Suicidal Ideation Suicidal Ideation: No Plan: denied - Homicidal Ideation Homicidal Ideation: No Plan: denied Goal/Treatment Plan - Goal/Treatment Plan Need for Continued Stay: Discharge may exacerbated symptoms, Severe functional impairment Progress Toward Problem(s) and Goals/Treatment Plan: continue treatment as per primary team. Psychoeducation Supportive therapy provided Therapy in milieu
--- NOTE | 2018-01-04 01:01 | CP.PCM.PN ---
<BryanashleyVernona - Last Filed: 01/04/18 01:00> Subjective - Date & Time of Evaluation Date of Evaluation: 01/04/18 Time of Evaluation: 01:00 - Subjective Subjective: Medicine Note for Hospitalist Service- Dr. Irene Patient was seen and examined at bedside. No acute complaints. Patient is resting in bed comfortably. Denied fever, chills, headache, chest pain, SOB, abdominal pain, n/v/d/c, or urinary symptoms. Objective - Vital Signs/Intake and Output Vital Signs (last 24 hours): Temp Pulse Resp BP Pulse Ox 98.6 F 74 20 110/71 99 01/03/18 06:13 01/03/18 16:11 01/03/18 06:13 01/03/18 16:11 01/03/18 06:13 - Medications Medications: Current Medications Acetaminophen (Tylenol 325mg Tab) 650 mg PO Q6 PRN PRN Reason: Fever >100.4 F Last Admin: 01/02/18 16:09 Dose: 650 mg Albuterol (Ventolin Hfa 90 Mcg/Actuation (8 G)) 1 puff INH RQ4 PRN PRN Reason: Wheezing Benzonatate (Tessalon Perles) 100 mg PO TID [facility] Last Admin: 01/03/18 18:13 Dose: 100 mg Benztropine Mesylate (Cogentin) 0.5 mg PO BID [facility] Last Admin: 01/03/18 18:13 Dose: 0.5 mg Escitalopram Oxalate (Lexapro) 20 mg PO DAILY [facility] Last Admin: 01/03/18 10:22 Dose: 20 mg Fluticasone Propionate (Flonase) 1 spr ARTURO BID [facility] Last Admin: 01/03/18 18:14 Dose: Not Given Haloperidol (Haldol) 5 mg PO Q1H PRN PRN Reason: agitation, max 4x/24h Hydroxyzine HCl (Atarax) 50 mg PO Q4H PRN PRN Reason: Anxiety Ibuprofen (Motrin Tab) 600 mg PO Q6H PRN PRN Reason: Pain, moderate (4-7) Last Admin: 01/01/18 23:01 Dose: 600 mg Moxifloxacin HCl (Avelox) 400 mg PO DAILY [facility] Last Admin: 01/03/18 10:22 Dose: 400 mg Risperidone (Risperdal Tab) 3 mg PO QPM [facility] Last Admin: 01/03/18 18:12 Dose: 3 mg Risperidone (Risperdal Tab) 1 mg PO DAILY [facility] Last Admin: 01/03/18 10:22 Dose: 1 mg Saccharomyces Boulardii (Florastor) 250 mg PO BID [facility] Last Admin: 01/03/18 18:12 Dose: 250 mg Trazodone HCl (Desyrel) 100 mg PO HS PRN PRN Reason: Insomnia - Labs Labs: 01/03/18 07:34 01/03/18 07:34 - Additional Findings Additional findings: - Head Exam Head Exam: ATRAUMATIC - Eye Exam Eye Exam: EOMI - ENT Exam ENT Exam: Mucous Membranes Moist - Neck Exam Neck Exam: absent: Lymphadenopathy, Tenderness, Thyromegaly - Respiratory Exam Respiratory Exam: NORMAL BREATHING PATTERN. absent: Rales, Rhonchi, Wheezes, Stridor - Cardiovascular Exam Cardiovascular Exam: REGULAR RHYTHM, +S1, +S2 - GI/Abdominal Exam GI & Abdominal Exam: Soft - Extremities Exam Extremities Exam: Full ROM. absent: Calf Tenderness - Back Exam Back Exam: absent: CVA tenderness (L), CVA tenderness (R) - Neurological Exam Neurological Exam: Alert, Awake, Oriented x3 - Psychiatric Exam Psychiatric exam: Normal Affect, Normal Mood - Skin Skin Exam: Warm Assessment and Plan - Assessment and Plan (Free Text) Plan: (1) Cough Assessment and Plan: Imaging: * Chest X-ray (PA and Lateral): no active disease Labs: * F/u Legionella: pending, Myco. Pneumoniae: negative and strep pneumoniae: pending and procalcitonin:mildly elevated Medications: * Avelox 400mg PO daily , Albuterol RQ4H, Flonase 1 spray BID * Tesslon perles for cough Status: Acute (2) Leukopenic Assessment and Plan: * Medications: Avelox 400mg PO daily * check HIV screen * Florastor 250mg PO BID * Pending blood cultures Status: Acute (3) History of thyroid disease Assessment and Plan: * Elevated TSH * Awaiting Free T4, Thyroid peroxidase, Thyroglobulin Status: Acute (4) Schizophrenia Assessment and Plan: * Pyschiatry, Dr. Weinberg on board (Primary care team) * Management as per recommendation Status: Acute DW Candy De Dios DO, PGY-1 <Jayde Irene V - Last Filed: 01/04/18 11:13> Objective - Vital Signs/Intake and Output Vital Signs (last 24 hours): Temp Pulse Resp BP Pulse Ox 98.6 F 74 20 110/71 99 01/03/18 06:13 01/03/18 16:11 01/03/18 06:13 01/03/18 16:11 01/03/18 06:13 - Medications Medications: Current Medications Acetaminophen (Tylenol 325mg Tab) 650 mg PO Q6 PRN PRN Reason: Fever >100.4 F Last Admin: 01/02/18 16:09 Dose: 650 mg Albuterol (Ventolin Hfa 90 Mcg/Actuation (8 G)) 1 puff INH RQ4 PRN PRN Reason: Wheezing Benzonatate (Tessalon Perles) 100 mg PO TID [facility] Last Admin: 01/04/18 09:18 Dose: 100 mg Benztropine Mesylate (Cogentin) 0.5 mg PO BID [facility] Last Admin: 01/04/18 09:18 Dose: 0.5 mg Escitalopram Oxalate (Lexapro) 20 mg PO DAILY [facility] Last Admin: 01/04/18 09:18 Dose: 20 mg Fluticasone Propionate (Flonase) 1 spr ARTURO BID [facility] Last Admin: 01/04/18 09:17 Dose: Not Given Haloperidol (Haldol) 5 mg PO Q1H PRN PRN Reason: agitation, max 4x/24h Hydroxyzine HCl (Atarax) 50 mg PO Q4H PRN PRN Reason: Anxiety Ibuprofen (Motrin Tab) 600 mg PO Q6H PRN PRN Reason: Pain, moderate (4-7) Last Admin: 01/01/18 23:01 Dose: 600 mg Moxifloxacin HCl (Avelox) 400 mg PO DAILY [facility] Last Admin: 01/04/18 09:18 Dose: 400 mg Risperidone (Risperdal Tab) 3 mg PO QPM [facility] Last Admin: 01/03/18 18:12 Dose: 3 mg Risperidone (Risperdal Tab) 1 mg PO DAILY [facility] Last Admin: 01/04/18 09:18 Dose: 1 mg Saccharomyces Boulardii (Florastor) 250 mg PO BID [facility] Last Admin: 01/04/18 09:28 Dose: 250 mg Trazodone HCl (Desyrel) 100 mg PO HS PRN PRN Reason: Insomnia - Labs Labs: 01/03/18 07:34 01/03/18 07:34 Attending/Attestation - Attestation I have personally seen and examined this patient.: Yes I have fully participated in the care of the patient.: Yes I have reviewed all pertinent clinical information, including history, physical exam and plan: Yes Notes (Text): Patient seen, examined, and case discussed with medical file clerk. Patient seen this morning on . Patient reports cough has improved. Patient reports he is taking the Flonase to help with his runny nose. Patient beyond the second day of Avelox. Blood work from this morning are not resulted. Blood culture support no growth for the past 24 hours. Patient afebrile since January 01. Patient recalls he takes Synthroid but cannot remember the dosage. Patient does have an elevated TSH with normal free T4. Waiting thyroid studies which are sent outpatient. Patient is ordered for repeat pro-calcitonin. Assessment/Plan (1) Cough Assessment and Plan: Imaging: * Chest X-ray (PA and Lateral): no active disease Labs: * F/u Legionella: pending, Myco. Pneumoniae: negative and strep pneumoniae: pending and procalcitonin:mildly elevated Medications: * Avelox 400mg PO daily (active since 01/03/18) * Albuterol RQ4H PRN wheezing * Flonase 1 spray ARTURO BID * Tesslon perles 100mg PO TID for cough Status: Chronic (2) Leukopenic Assessment and Plan: * Avelox 400mg PO daily (active since 01/03/18) * HIV: negative * Florastor 250mg PO BID * Blood cultures (01/02/18): no growth after 24hours X2 * Awaiting blood works Status: Acute (3) History of thyroid disease Assessment and Plan: * Elevated TSH: 6.21 * Free T4: 1.39 * Pending: Thyroid peroxidase, Thyroglobulin * Will start Synthroid 50 mcg PO AM Status: Acute (4) Schizophrenia Assessment and Plan: * Pyschiatry, Dr. Weinberg on board (Primary care team) * Management as per recommendation Status: Acute Disposition: We are awaiting blood work from this morning. Patient has been afebrile since January 01 evening. Waiting blood cultures to be 48 hours negative. If so, medicine team to sign off tomorrow patient will need at least 5 days worth of Avelox to complete 7 days for cough. Patient will need thyroid studies repeated in 6-8 weeks to adjust his thyroid. It patient does not have a primary care doctor, he is recommends follow-up at the [facility] phone number [phone] which is located at the hospital basement. If patient chooses to go to the [place] location which is [place] [address] [place] [address] phone number is [phone].
[2018-01-04] MEDS: Fluticasone Nasal 50 mcg/Spray NAS SCH ×2 (09:17→18:09)
[2018-01-04] MEDS: Saccharomyces Boulardi 250 mg Cap PO SCH ×2 (09:28→18:09)
--- NOTE | 2018-01-04 17:08 | PCM.PYCHPN ---
Psychiatric Progress Note - Psychiatric Progress Note Patient seen today, length of contact: 16 min Patient Chief Complaint: "I want to rest." Problems Identified/Issues Discussed: Patient seen and evaluated, chart reviewed. Nurse input received that pt is compliant with his meds but he refuse to have breakfast. He is isolated to himself in the room. Pt stated that he is feeling okay and he needs to rest. He reported that he is not hungry to eat breakfast. Pt also refuse to have blood work in the morning. Pt reported decrease in frequency of AH. He appears less paranoid and less delusional but still reports of hearing voices. He reports some improvement in his mood and some improvement in the feelings of hopelessness and helplessness. He remained isolated and withdrawn. Patient is compliant with medications and denies any side effects. Symptoms are improving but need more time to stabilize. Support and psychoeducation given. DSM 5 Symptoms Update: Schizophrenia Medication Change: Yes (increase risperdal) Medical Record Reviewed: Yes Mental Status Examination - Cognitive Function Orientation: Person, Place, Situation, Time Memory: Impaired Attention: Poor Concentration: Poor Association: WNL Fund of Knowledge: Poor Decription of patient's judgement and insights: limited/limited He is lying in the bed - Mood Mood: Depressed, Anxious - Affect Affect: Blunted - Speech Speech: Appropriate - Formal Thought Process Formal Thought Process: Hallucinations, Delusions, Paranoia - Suicidal Ideation Suicidal Ideation: No Plan: denied - Homicidal Ideation Homicidal Ideation: No Plan: denied Goal/Treatment Plan - Goal/Treatment Plan Need for Continued Stay: Discharge may exacerbated symptoms, Severe functional impairment Progress Toward Problem(s) and Goals/Treatment Plan: continue treatment as per primary team. Psychoeducation Supportive therapy provided Therapy in milieu Encouraged him to attend groups and individual therapy. Encouraged him to be compliant with medicine team recommendations. Appreciate medicine team recommendations. Estimated Date of D/C: 01/07/18 - Smoking Cessation Smoking Cessation Initiated: Yes
[2018-01-05] MEDS: Levothyroxine 50 MCG TAB PO SCH (05:52)
[2018-01-05] MEDS: Saccharomyces Boulardi 250 mg Cap PO SCH ×2 (10:00→17:47)
[2018-01-05] MEDS: Fluticasone Nasal 50 mcg/Spray NAS SCH ×2 (10:02→17:47)
--- NOTE | 2018-01-05 11:10 | CP.PCM.PN ---
<Hira Escalona E - Last Filed: 01/05/18 11:44> Subjective - Date & Time of Evaluation Date of Evaluation: 01/05/18 Time of Evaluation: 09:20 - Subjective Subjective: Medicine progress note ( Dr. Rosana Gibbons's service) Patient was seen and examined at bedside. Patient reports that he is doing well but admits to intermittent cough. Patient denies chest pain, palpitations, SOB, pain with cough, fever, chills, abdominal pain, nausea, vomiting and diarrhea. Objective - Vital Signs/Intake and Output Vital Signs (last 24 hours): Temp Pulse Resp BP Pulse Ox 97.9 F 83 18 107/66 99 01/05/18 09:38 01/05/18 09:38 01/05/18 09:38 01/05/18 09:38 01/03/18 06:13 - Medications Medications: Current Medications Acetaminophen (Tylenol 325mg Tab) 650 mg PO Q6 PRN PRN Reason: Fever >100.4 F Last Admin: 01/02/18 16:09 Dose: 650 mg Albuterol (Ventolin Hfa 90 Mcg/Actuation (8 G)) 1 puff INH RQ4 PRN PRN Reason: Wheezing Benzonatate (Tessalon Perles) 100 mg PO TID [facility] Last Admin: 01/05/18 10:02 Dose: 100 mg Benztropine Mesylate (Cogentin) 0.5 mg PO BID [facility] Last Admin: 01/05/18 10:00 Dose: 0.5 mg Escitalopram Oxalate (Lexapro) 20 mg PO DAILY [facility] Last Admin: 01/05/18 10:00 Dose: 20 mg Fluticasone Propionate (Flonase) 1 spr ARTURO BID [facility] Last Admin: 01/05/18 10:02 Dose: Not Given Haloperidol (Haldol) 5 mg PO Q1H PRN PRN Reason: agitation, max 4x/24h Hydroxyzine HCl (Atarax) 50 mg PO Q4H PRN PRN Reason: Anxiety Ibuprofen (Motrin Tab) 600 mg PO Q6H PRN PRN Reason: Pain, moderate (4-7) Last Admin: 01/01/18 23:01 Dose: 600 mg Levothyroxine Sodium (Synthroid) 50 mcg PO DAILY@0630 [facility] Last Admin: 01/05/18 05:52 Dose: 50 mcg Moxifloxacin HCl (Avelox) 400 mg PO DAILY [facility] Last Admin: 01/05/18 10:02 Dose: 400 mg Risperidone (Risperdal Tab) 3 mg PO QPM [facility] Last Admin: 01/04/18 18:02 Dose: 3 mg Risperidone (Risperdal Tab) 1 mg PO DAILY [facility] Last Admin: 01/05/18 10:01 Dose: 1 mg Saccharomyces Boulardii (Florastor) 250 mg PO BID [facility] Last Admin: 01/05/18 10:00 Dose: 250 mg Trazodone HCl (Desyrel) 100 mg PO HS PRN PRN Reason: Insomnia - Labs Labs: 01/03/18 07:34 01/03/18 07:34 - Constitutional Appears: Well, No Acute Distress - Head Exam Head Exam: ATRAUMATIC, NORMAL INSPECTION - Eye Exam Eye Exam: EOMI, Normal appearance - ENT Exam ENT Exam: Mucous Membranes Moist - Respiratory Exam Respiratory Exam: Clear to Ausculation Bilateral, NORMAL BREATHING PATTERN. absent: Chest Wall Tenderness, Prolonged Expiratory Phase, Rhonchi, Wheezes, Respiratory Distress, Stridor - Cardiovascular Exam Cardiovascular Exam: REGULAR RHYTHM, +S1, +S2 - GI/Abdominal Exam GI & Abdominal Exam: Soft, Normal Bowel Sounds. absent: Firm, Guarding, Rigid, Tenderness - Extremities Exam Extremities Exam: Normal Inspection. absent: Calf Tenderness, Pedal Edema - Neurological Exam Neurological Exam: Alert, Awake - Psychiatric Exam Psychiatric exam: Normal Affect - Skin Skin Exam: Normal Color Assessment and Plan (1) Cough Assessment & Plan: Imaging: * Chest X-ray (PA and Lateral): no active disease Labs: * Myco. Pneumoniae: Negative * Blood Culture negative for 48 hours * F/u Legionella and Strep Pneumoniae: Pending * procalcitonin: mildly elevated at 0.54 * Patient refused lab work for 01/05/2018 Medications: * Avelox 400mg PO daily ( Started 01/03/18, must complete up to 7 days) * Albuterol RQ4H, Flonase 1 spray BID * Tesslon perles 100mg PO TID Status: Acute (2) Leukocytosis Assessment & Plan: Labs: Trending down HIV: Negative ( Noted leukopenic) Myco. Pneumoniae: Negative Blood culture negative X48 hours Medications: * Avelox 400mg PO daily ( started 01/03/18, should complete 7 days) * Florastor 250mg PO BID Status: Acute (3) History of thyroid disease Assessment & Plan: Labs: * TSH: 6.21, T4: 1.39 * Awaiting Thyroid peroxidase, Thyroglobulin Medications: Synthroid 50mcg PO daily Status: Acute (4) Schizophrenia Assessment & Plan: Pyschiatry, Dr. Weinberg on board (Primary care team) * Management as per recommendation All plans and management discussed with attending Medicine team will sign off as patient is medically stable, thank you for the consultation Status: Acute <Henry Gibbons - Last Filed: 01/05/18 17:30> Objective - Vital Signs/Intake and Output Vital Signs (last 24 hours): Temp Pulse Resp BP Pulse Ox 97.9 F 69 18 115/74 99 01/05/18 16:13 01/05/18 16:13 01/05/18 16:13 01/05/18 16:13 01/03/18 06:13 - Medications Medications: Current Medications Acetaminophen (Tylenol 325mg Tab) 650 mg PO Q6 PRN PRN Reason: Fever >100.4 F Last Admin: 01/02/18 16:09 Dose: 650 mg Albuterol (Ventolin Hfa 90 Mcg/Actuation (8 G)) 1 puff INH RQ4 PRN PRN Reason: Wheezing Benzonatate (Tessalon Perles) 100 mg PO TID [facility] Last Admin: 01/05/18 13:39 Dose: Not Given Benztropine Mesylate (Cogentin) 0.5 mg PO BID [facility] Last Admin: 01/05/18 10:00 Dose: 0.5 mg Escitalopram Oxalate (Lexapro) 20 mg PO DAILY [facility] Last Admin: 01/05/18 10:00 Dose: 20 mg Fluticasone Propionate (Flonase) 1 spr ARTURO BID [facility] Last Admin: 01/05/18 10:02 Dose: Not Given Haloperidol (Haldol) 5 mg PO Q1H PRN PRN Reason: agitation, max 4x/24h Hydroxyzine HCl (Atarax) 50 mg PO Q4H PRN PRN Reason: Anxiety Ibuprofen (Motrin Tab) 600 mg PO Q6H PRN PRN Reason: Pain, moderate (4-7) Last Admin: 01/01/18 23:01 Dose: 600 mg Levothyroxine Sodium (Synthroid) 50 mcg PO DAILY@0630 [facility] Last Admin: 01/05/18 05:52 Dose: 50 mcg Moxifloxacin HCl (Avelox) 400 mg PO DAILY [facility] Last Admin: 01/05/18 10:02 Dose: 400 mg Risperidone (Risperdal Tab) 3 mg PO QPM [facility] Last Admin: 01/04/18 18:02 Dose: 3 mg Risperidone (Risperdal Tab) 1 mg PO DAILY [facility] Last Admin: 01/05/18 10:01 Dose: 1 mg Saccharomyces Boulardii (Florastor) 250 mg PO BID [facility] Last Admin: 01/05/18 10:00 Dose: 250 mg Trazodone HCl (Desyrel) 100 mg PO HS PRN PRN Reason: Insomnia - Labs Labs: 01/03/18 07:34 01/03/18 07:34 Attending/Attestation - Attestation I have personally seen and examined this patient.: Yes I have fully participated in the care of the patient.: Yes I have reviewed all pertinent clinical information, including history, physical exam and plan: Yes Notes (Text): 01/05/18 17:29 Patient was seen and examined at 12:00 PM 527 B Exam, assessment and plan were gone over with the resident. Henry Gibbons D.O.
--- NOTE | 2018-01-05 12:54 | CARD ---
APPROVED REPORT EKG Measurement Heart [id number] <Conclusion> Normal sinus rhythm Normal ECG
--- NOTE | 2018-01-05 13:56 | PCM.PYCHPN ---
Psychiatric Progress Note - Psychiatric Progress Note Patient seen today, length of contact: 16 min Patient Chief Complaint: "I'm okay today" Problems Identified/Issues Discussed: Patient seen and evaluated, chart reviewed. Over the weekend, pt started refusing meals and medications. He started eating 1 meal per day. He appears less paranoid and less delusional but still reports of hearing voices. He reports some improvement in his mood and some improvement in the feelings of hopelessness and helplessness. He remained isolated and withdrawn. Pt also refuse to have blood work in the morning. Pt reported decrease in frequency of AH. Patient is compliant with medications and denies any side effects. Symptoms are improving but need more time to stabilize. Support and psychoeducation given. Medication Change: Yes (increase risperdal) Medical Record Reviewed: Yes Mental Status Examination - Cognitive Function Orientation: Person, Place, Situation, Time Memory: Impaired Attention: Poor Concentration: Poor Association: WNL Fund of Knowledge: Poor - Mood Mood: Depressed - Affect Affect: Blunted - Speech Speech: Appropriate - Language Language: Word Retrieval - Formal Thought Process Formal Thought Process: Hallucinations, Delusions, Paranoia - Suicidal Ideation Suicidal Ideation: No - Homicidal Ideation Homicidal Ideation: No Goal/Treatment Plan - Goal/Treatment Plan Need for Continued Stay: Discharge may exacerbated symptoms, Severe functional impairment Progress Toward Problem(s) and Goals/Treatment Plan: CBT for relapse prevention Encourage MAT ME for abstinence Refer to rehab or IOP, and self-help groups Supportive therapy and psychoeducation As needed medications All risks, benefits and alternatives of the meds discussed, and the pt agreed and understood. Attend groups and activities Risperdal 4 mg PO QHS Increase Risperdal 1 mg PO Daily Cogentin 1 mg PO QHS Lexapro 20 mg for depression Trazodone 100 mg po QHS Invega sustenna 234 mg I/M Estimated Date of D/C: 01/07/18
--- NOTE | 2018-01-05 17:31 | CP.PCM.PCO ---
Physician Communication Note - Physician Communication Note Physician Communication Note: Please see above
[2018-01-06] MEDS ORDERED: Paliperidone Palmitate 234 MG/1.5 ML SYR IM ONE ×3 (01:53→12:00)
[2018-01-06] MEDS: Levothyroxine 50 MCG TAB PO SCH (06:30)
[2018-01-06] MEDS: Saccharomyces Boulardi 250 mg Cap PO SCH ×2 (10:17→18:25)
[2018-01-06] MEDS: Fluticasone Nasal 50 mcg/Spray NAS SCH ×2 (10:17→18:32)
--- NOTE | 2018-01-06 10:51 | PCM.PYCHPN ---
Psychiatric Progress Note - Psychiatric Progress Note Patient seen today, length of contact: 16 min Patient Chief Complaint: "I'm okay" Problems Identified/Issues Discussed: Patient seen and evaluated, chart reviewed. Pt is still refusing medications and taking selective medications. He is still eating 1 meal per day. He appears less paranoid and less delusional but still reports of hearing voices. He reports some improvement in his mood but remained isolated and withdrawn. Pt reports decrease in frequency of AH. Patient is compliant with medications and denies any side effects. Symptoms are improving but need more time to stabilize. Medication Change: Yes (start Prolixin) Medical Record Reviewed: Yes Mental Status Examination - Cognitive Function Orientation: Person, Place, Situation, Time Memory: Impaired Attention: Poor Concentration: Poor Association: WNL Fund of Knowledge: Poor - Mood Mood: Depressed - Affect Affect: Blunted - Speech Speech: Appropriate - Language Language: Word Retrieval - Formal Thought Process Formal Thought Process: Hallucinations, Delusions, Paranoia - Suicidal Ideation Suicidal Ideation: No - Homicidal Ideation Homicidal Ideation: No Goal/Treatment Plan - Goal/Treatment Plan Need for Continued Stay: Discharge may exacerbated symptoms, Severe functional impairment Progress Toward Problem(s) and Goals/Treatment Plan: CBT for relapse prevention Encourage MAT AR for abstinence Refer to rehab or IOP, and self-help groups Supportive therapy and psychoeducation As needed medications All risks, benefits and alternatives of the meds discussed, and the pt agreed and understood. Attend groups and activities Risperdal 4 mg PO QHS Increase Risperdal 1 mg PO Daily Prolixin 5 mg PO BID Cogentin 1 mg PO QHS Lexapro 20 mg for depression Trazodone 100 mg po QHS d/c Invega sustenna 234 mg I/M Estimated Date of D/C: 01/07/18
[2018-01-07] MEDS: Levothyroxine 50 MCG TAB PO SCH (05:37)
--- NOTE | 2018-01-07 10:23 | PCM.BM ---
<BriceMirtha Hayden - Last Filed: 01/07/18 10:22> Treatment Plan Problems - Problems identified on initial assessmt Suicidal Ideation Date Initiated: 12/27/17 Time Initiated: 02:30 Assessment reference: NA Status: Active Auditory Hallucinations Date Initiated: 12/27/17 Time Initiated: 02:30 Assessment reference: NA Status: Active Treatment assets and liabiliti Patient Assests: cooperative, ADL independent, negotiates basic needs Patient Liabilities: financial problems, poor support system - Milieu Protocol Maintain good personal hygiene: daily Encourage regular showers, daily Remind patient to perform daily oral care, daily Assist patient to perform ADL's Conduct patient checks and document Observation sheet: Q15 minutes Maintain personal safety: every shift Educate patient to report safety concerns to staff, every shift Monitor environment for contraband/sharps Medication safety: Monitor for expected outcome, potential side effects: every shift, Assess barriers to learning: every shift, Assess readiness for medication education: every shift Milieu Narrative: CBT for relapse prevention Encourage MAT [place] for abstinence Refer to rehab or IOP, and self-help groups Supportive therapy and psychoeducation As needed medications All risks, benefits and alternatives of the meds discussed, and the pt agreed and understood. Attend groups and activities Risperdal 4 mg PO QHS Increase Risperdal 1 mg PO Daily Cogentin 1 mg PO QHS Lexapro 10 mg for depression Trazodone 100 mg po QHS Invega sustenna 234 mg I/M Family Contact Family involvement: Famliy/SO not involved - Goals for Treatment Patient goals for treatment: "I need medication." Discharge/Continuing Care - Education Needs Education Needs: Patient Medication, Patient Coping Skills, Patient Placement options, Patient Community resources - Discharge Discharge Criteria: Tolerates medication w/o severe side effects, Reduction of target symptoms Discharge to:: Care Home - Treatment Team Participation Patient/Family/SO Statement: CBT for relapse prevention Encourage MAT [place] for abstinence Refer to rehab or IOP, and self-help groups Supportive therapy and psychoeducation As needed medications All risks, benefits and alternatives of the meds discussed, and the pt agreed and understood. Attend groups and activities Risperdal 4 mg PO QHS Increase Risperdal 1 mg PO Daily Cogentin 1 mg PO QHS Lexapro 10 mg for depression Trazodone 100 mg po QHS Invega sustenna 234 mg I/M Discussed with Family/SO: No Was Patient/Family/SO present at Treatment Team Meeting: Yes Treatment Plan Review - Problem Suicidal Ideation Time Initiated: :30 Auditory Hallucinations Time Initiated: : - Discharge / Continuing Care Discharge to:: Other Behavioral Health Services: Other Health Needs: Medications/Rx <Jayda Schroeder - Last Filed: 01/07/18 14:05> Treatment Plan Review - Problem Suicidal Ideation Date Initiated: 01/07/18 Progress toward outcomes: improved Auditory Hallucinations Date Initiated: 01/07/18 Progress toward outcomes: unchanged (Is being screened for comittment) <Zakia Weinberg - Last Filed: 01/08/18 00:29> - Diagnosis (1) Paranoid schizophrenia Status: Acute Interventions: 01/08/18 00:29 * Assess/adjust medications daily and /or as needed * See patient on an individual basis 7x/week to assess status of hallucinations * Discuss risks, benefits, side effects and alternatives of medications *
[2018-01-07] MEDS: Saccharomyces Boulardi 250 mg Cap PO SCH ×2 (11:07→17:16)
[2018-01-07] MEDS: Fluticasone Nasal 50 mcg/Spray NAS SCH ×2 (11:07→17:37)
--- NOTE | 2018-01-07 23:42 | PCM.PYCHPN ---
Psychiatric Progress Note - Psychiatric Progress Note Patient seen today, length of contact: 16 min Patient Chief Complaint: "I'm feeling little better." Problems Identified/Issues Discussed: The pt is seen, chart reviewed, case discussed with staff. As per the staff, yesterday pt refused all mediations and today he became increasingly disorganized and internally preoccupied. He remained isolated and withdrawn. When inquired, 'he stated that his voices told him not to take any medications. ' He appeared paranoid and delusional. The pt is selectively compliant with medications and reports no side-effects. Symptoms improving and patient needs more time to stabilize. After care discussed, support and psychoeducation given. Medication Change: Yes (d/c risperdal, start prolixin) Medical Record Reviewed: Yes Mental Status Examination - Cognitive Function Orientation: Person, Place, Situation, Time Memory: Impaired Attention: Poor Concentration: Poor Association: WNL Fund of Knowledge: Poor - Mood Mood: Depressed - Affect Affect: Blunted - Speech Speech: Appropriate - Language Language: Word Retrieval - Formal Thought Process Formal Thought Process: Hallucinations, Delusions, Paranoia - Suicidal Ideation Suicidal Ideation: No - Homicidal Ideation Homicidal Ideation: No Goal/Treatment Plan - Goal/Treatment Plan Need for Continued Stay: Discharge may exacerbated symptoms, Severe functional impairment Progress Toward Problem(s) and Goals/Treatment Plan: CBT for relapse prevention Encourage MAT [place] for abstinence Refer to rehab or IOP, and self-help groups Supportive therapy and psychoeducation As needed medications All risks, benefits and alternatives of the meds discussed, and the pt agreed and understood. Attend groups and activities d/c Risperdal 4 mg PO QHS d/c Increase Risperdal 1 mg PO Daily Prolixin 10 mg PO BID Cogentin 1 mg PO BID Lexapro 20 mg for depression Trazodone 100 mg po QHS Estimated Date of D/C: 01/07/18 - Smoking Cessation Smoking Cessation Initiated: No
[2018-01-08] MEDS: Levothyroxine 50 MCG TAB PO SCH (06:11)
[2018-01-08] MEDS: Fluticasone Nasal 50 mcg/Spray NAS SCH ×2 (10:43→18:10)
[2018-01-08] MEDS: Saccharomyces Boulardi 250 mg Cap PO SCH ×2 (10:44→18:19)
--- NOTE | 2018-01-08 21:41 | PCM.PYCHPN ---
Psychiatric Progress Note - Psychiatric Progress Note Patient seen today, length of contact: 16 min Patient Chief Complaint: "I'm okay" Problems Identified/Issues Discussed: Patient seen and evaluated, chart reviewed. Pt is still refusing medications and taking selective medications. He appears less paranoid and less delusional but still reports of hearing voices. He reports some improvement in his mood but remained isolated and withdrawn. Pt reports decrease in frequency of AH. He is still eating 1 meal per day. Symptoms are slowly improving, but need more time to stabilize. Patient is compliant with medications and denies any side effects. Medication Change: Yes (start Prolixin) Medical Record Reviewed: Yes Mental Status Examination - Cognitive Function Orientation: Person, Place, Situation, Time Memory: Impaired Attention: Poor Concentration: Poor Association: WNL Fund of Knowledge: Poor - Mood Mood: Depressed - Affect Affect: Blunted - Speech Speech: Appropriate - Language Language: Word Retrieval - Formal Thought Process Formal Thought Process: Hallucinations, Delusions, Paranoia - Suicidal Ideation Suicidal Ideation: No - Homicidal Ideation Homicidal Ideation: No Goal/Treatment Plan - Goal/Treatment Plan Need for Continued Stay: Discharge may exacerbated symptoms, Severe functional impairment Progress Toward Problem(s) and Goals/Treatment Plan: CBT for relapse prevention Encourage MAT [place] for abstinence Refer to rehab or IOP, and self-help groups Supportive therapy and psychoeducation As needed medications All risks, benefits and alternatives of the meds discussed, and the pt agreed and understood. Attend groups and activities Risperdal 4 mg PO QHS Increase Risperdal 1 mg PO Daily Prolixin 5 mg PO BID Cogentin 1 mg PO QHS Lexapro 20 mg for depression Trazodone 100 mg po QHS d/c Invega sustenna 234 mg I/M Estimated Date of D/C: 01/07/18
[2018-01-09] MEDS: Levothyroxine 50 MCG TAB PO SCH (06:31)
[2018-01-09] MEDS: Saccharomyces Boulardi 250 mg Cap PO SCH ×2 (14:53→17:04)
[2018-01-09] MEDS: Fluticasone Nasal 50 mcg/Spray NAS SCH ×2 (14:53→17:31)
[2018-01-10] MEDS: Levothyroxine 50 MCG TAB PO SCH (06:16)
--- NOTE | 2018-01-10 09:02 | PCM.PYCHPN ---
Psychiatric Progress Note - Psychiatric Progress Note Patient seen today, length of contact: 16 min Patient Chief Complaint: "I'm okay" Problems Identified/Issues Discussed: Patient seen and evaluated, chart reviewed. Pt is still refusing medications and taking selective medications. He reports some improvement in his mood but remained isolated and withdrawn. He still appears paranoid and delusional but he reports some improvement in the voices. Pt reports decrease in frequency of AH. He is still eating 1 meal per day. He agreed to get Prolixin Decanoate shot. Patient is compliant with medications and denies any side effects. Symptoms are improving but need more time to stabilize. Medication Change: Yes (Prolixin decanoate) Medical Record Reviewed: Yes Mental Status Examination - Cognitive Function Orientation: Person, Place, Situation, Time Memory: Impaired Attention: Poor Concentration: Poor Association: WNL Fund of Knowledge: Poor - Mood Mood: Depressed - Affect Affect: Blunted - Speech Speech: Appropriate - Language Language: Word Retrieval - Formal Thought Process Formal Thought Process: Hallucinations, Delusions, Paranoia - Suicidal Ideation Suicidal Ideation: No - Homicidal Ideation Homicidal Ideation: No Goal/Treatment Plan - Goal/Treatment Plan Need for Continued Stay: Discharge may exacerbated symptoms, Severe functional impairment Progress Toward Problem(s) and Goals/Treatment Plan: CBT for relapse prevention Encourage MAT [place] for abstinence Refer to rehab or IOP, and self-help groups Supportive therapy and psychoeducation As needed medications All risks, benefits and alternatives of the meds discussed, and the pt agreed and understood. Attend groups and activities Prolixin 10 mg PO BID Cogentin 1 mg PO QHS Lexapro 20 mg for depression Trazodone 100 mg po QHS Prolixin Decanoate 25 mg I/M Remeron 30 mg po QHS Estimated Date of D/C: 01/07/18
[2018-01-10] MEDS: Fluticasone Nasal 50 mcg/Spray NAS SCH ×3 (09:44→17:57)
[2018-01-10] MEDS: Saccharomyces Boulardi 250 mg Cap PO SCH ×2 (09:44→17:56)
[2018-01-10] MEDS ORDERED: fluPHENAZine Decanoate 25 mg/mL Inj(5ml) IM ONE (11:00)
--- NOTE | 2018-01-10 19:28 | PCM.PYCHPN ---
Psychiatric Progress Note - Psychiatric Progress Note Patient seen today, length of contact: 15 minutes Patient Chief Complaint: I am okay Problems Identified/Issues Discussed: Patient seen, chart reviewed, case discussed with the staff. Issues related to illness and treatment were discussed with the patient. Reported compliant with treatment with no adverse affects. Tolerating treatment very well. Patient reported feeling better with the treatment. Isolative, staying in his room. Patient needs more time for stabilization. Patient refused to take injection Prolixin but accepted oral Prolixin. At the time of evaluation, patient was awake alert oriented 3, had no delusions , no auditory or visual hallucinations, no suicidal ideations or homicidal ideations. Aftercare discussed with the patient. Medical Problems: Asthma Diagnostic Results: Reviewed DSM 5 Symptoms Update: Some improvement with treatment Medication Change: Yes (Prolixin decanoate) Medical Record Reviewed: Yes Mental Status Examination - Cognitive Function Orientation: Person, Place, Situation, Time Memory: Impaired Attention: WNL Concentration: WNL Association: WNL Fund of Knowledge: [facility] Decription of patient's judgement and insights: Poor - Mood Mood: Depressed - Affect Affect: Blunted - Speech Speech: Soft - Formal Thought Process Formal Thought Process: Hallucinations, Paranoia - Suicidal Ideation Suicidal Ideation: No - Homicidal Ideation Homicidal Ideation: No Goal/Treatment Plan - Goal/Treatment Plan Need for Continued Stay: Remain at risks for inpatient hospitalization, Discharge may exacerbated symptoms, Severe functional impairment Progress Toward Problem(s) and Goals/Treatment Plan: Patient education Supportive therapy Continue treatment as before Estimated Date of D/C: 01/14/18 - Smoking Cessation Smoking Cessation Initiated: No
[2018-01-11] MEDS: Levothyroxine 50 MCG TAB PO SCH (06:21)
[2018-01-11] MEDS: Fluticasone Nasal 50 mcg/Spray NAS SCH ×2 (10:51→18:21)
[2018-01-11] MEDS: Saccharomyces Boulardi 250 mg Cap PO SCH ×2 (10:51→18:21)
--- NOTE | 2018-01-11 18:49 | PCM.PYCHPN ---
Psychiatric Progress Note - Psychiatric Progress Note Patient seen today, length of contact: 15 minutes Patient Chief Complaint: I am okay, I don't want injection. I still hear voices telling me to kill myself. Problems Identified/Issues Discussed: Patient seen, chart reviewed, case discussed with the staff. Issues related to illness and treatment were discussed with the patient. Reported compliant with treatment with no adverse affects. Tolerating treatment very well. Patient reported feeling better with the treatment. Isolative, staying in his room. Patient reported he still hear voices telling him to kill himself, but he feels safe in the hospital. Patient needs more time for stabilization. Patient refused to take injection Prolixin but accepted oral Prolixin. At the time of evaluation, patient was awake alert oriented 3, had no delusions , no auditory or visual hallucinations, no suicidal ideations or homicidal ideations. Aftercare discussed with the patient. Medical Problems: Asthma Diagnostic Results: Reviewed DSM 5 Symptoms Update: Improving with treatment Medication Change: No Medical Record Reviewed: Yes Mental Status Examination - Cognitive Function Orientation: Person, Place, Situation, Time Memory: Impaired Attention: WNL Concentration: WNL Association: [facility] Fund of Knowledge: [facility] Decription of patient's judgement and insights: Fair - Mood Mood: Depressed - Affect Affect: Blunted - Speech Speech: Soft - Formal Thought Process Formal Thought Process: Hallucinations, Paranoia - Suicidal Ideation Suicidal Ideation: No - Homicidal Ideation Homicidal Ideation: No Goal/Treatment Plan - Goal/Treatment Plan Need for Continued Stay: Remain at risks for inpatient hospitalization, Discharge may exacerbated symptoms, Severe functional impairment Progress Toward Problem(s) and Goals/Treatment Plan: Patient education Supportive therapy Continue treatment as before Estimated Date of D/C: 01/14/18 - Smoking Cessation Smoking Cessation Initiated: No
[2018-01-12] MEDS: Levothyroxine 50 MCG TAB PO SCH (06:30)
[2018-01-12] MEDS: Saccharomyces Boulardi 250 mg Cap PO SCH ×2 (09:51→17:51)
[2018-01-12] MEDS: Fluticasone Nasal 50 mcg/Spray NAS SCH ×2 (10:09→18:57)
--- NOTE | 2018-01-12 13:27 | PCM.PYCHPN ---
Psychiatric Progress Note - Psychiatric Progress Note Patient seen today, length of contact: 15 minutes Patient Chief Complaint: "I'm okay" Problems Identified/Issues Discussed: Patient seen and evaluated, chart reviewed. Pt is still refusing medications and taking selective medications. He reports some improvement in his mood but remained isolated and withdrawn. He still appears paranoid and delusional but he reports some improvement in the voices. Pt reports decrease in frequency of AH. He is still eating 1 meal per day. He agreed to get Prolixin Decanoate shot. Patient is compliant with medications and denies any side effects. Symptoms are improving but need more time to stabilize. Medication Change: No Medical Record Reviewed: Yes Mental Status Examination - Cognitive Function Orientation: Person, Place, Situation, Time Memory: Impaired Attention: WNL Concentration: WNL Association: WNL Fund of Knowledge: WNL - Mood Mood: Depressed - Affect Affect: Blunted - Speech Speech: Soft - Language Language: Word Retrieval - Formal Thought Process Formal Thought Process: Hallucinations, Paranoia - Suicidal Ideation Suicidal Ideation: No - Homicidal Ideation Homicidal Ideation: No Goal/Treatment Plan - Goal/Treatment Plan Need for Continued Stay: Remain at risks for inpatient hospitalization, Discharge may exacerbated symptoms, Severe functional impairment Progress Toward Problem(s) and Goals/Treatment Plan: CBT for relapse prevention Encourage MAT [place] for abstinence Refer to rehab or IOP, and self-help groups Supportive therapy and psychoeducation As needed medications All risks, benefits and alternatives of the meds discussed, and the pt agreed and understood. Attend groups and activities Prolixin 10 mg PO BID Cogentin 1 mg PO QHS Lexapro 20 mg for depression Trazodone 100 mg po QHS Prolixin Decanoate 25 mg I/M Remeron 30 mg po QHS Estimated Date of D/C: 01/14/18
[2018-01-13] MEDS: Fluticasone Nasal 50 mcg/Spray NAS SCH ×2 (10:05→17:03)
[2018-01-13] MEDS: Saccharomyces Boulardi 250 mg Cap PO SCH ×2 (10:05→17:04)
[2018-01-13 16:59] LABS: BASO % 0.9 % (0.0-2.0); EOS # 0.1 K/uL (0.0-0.7); EOS % 1.4 % (0.0-4.0); HEMOGLOBIN 14.7 g/dL (12.0-18.0); LYMPH # 1.7 K/uL (1.0-4.3); LYMPH % 41.5 % (20.0-40.0); MEAN CELL VOLUME 86.4 fL (80.0-94.0); MEAN CORPUSCULAR HEMOGLOBIN 29.8 pg (27.0-31.0); MEAN CORPUSCULAR HGB CONC 34.5 g/dL (33.0-37.0); MEAN PLATELET VOLUME 9.2 fL (7.2-11.7); MONO # 0.2 K/uL (0.0-0.8); MONO % 5.8 % (0.0-10.0); NEUT % 50.4 % (50.0-75.0); NRBC % 0.2 % (0.0-2.0); RBC 4.92 Mil/uL (4.40-5.90); RED CELL DISTRIBUTION WIDTH 13.2 % (11.5-14.5); WHITE BLOOD COUNT 4.1 K/uL (4.8-10.8)
[2018-01-13 17:06] LABS: ALB/GLOB RATIO 1.3 (1.0-2.1); ALBUMIN 4.3 g/dL (3.5-5.0); ALT/SGPT 25 U/L (21-72); AST/SGOT 17 U/L (17-59); BLOOD UREA NITROGEN 11 mg/dL (9-20); CALCIUM 9.5 mg/dl (8.6-10.4); GFR AFRICAN-AMERICAN > 60; GFR NON-AFRICAN AMERICAN > 60
[2018-01-14] MEDS: Levothyroxine 50 MCG TAB PO SCH (06:59)
[2018-01-14] MEDS: Saccharomyces Boulardi 250 mg Cap PO SCH ×2 (09:48→17:12)
[2018-01-14] MEDS: Fluticasone Nasal 50 mcg/Spray NAS SCH ×2 (09:49→17:17)
[2018-01-15] MEDS: Levothyroxine 50 MCG TAB PO SCH (06:50)
[2018-01-15] MEDS: Saccharomyces Boulardi 250 mg Cap PO SCH ×2 (10:10→17:15)
[2018-01-15] MEDS: Fluticasone Nasal 50 mcg/Spray NAS SCH ×2 (10:10→17:13)
--- NOTE | 2018-01-15 13:45 | PCM.PYCHPN ---
Psychiatric Progress Note - Psychiatric Progress Note Patient seen today, length of contact: 16 minutes Patient Chief Complaint: "I feel okay" Problems Identified/Issues Discussed: Patient seen and evaluated, chart reviewed. Pt is still refusing medications and taking selective medications. He reports some improvement in his mood but appears more isolated and withdrawn compared to yesterday. Patient was seen ambulating outside his room yesterday, interacting with other patients. Today he has not been seen outside his room. Upon entering the room, patient was lying down with blankets covering his entire person, including his head. He still appears paranoid and delusional but he reports further improvement in the voices. Pt reports decrease in frequency of AH. He is still eating 1 meal per day. He agreed to get Prolixin Decanoate shot. Patient is compliant with medications and denies any side effects. Symptoms are improving but need more time to stabilize. Medication Change: No Medical Record Reviewed: Yes Mental Status Examination - Cognitive Function Orientation: Person, Place, Situation, Time Memory: Impaired Attention: WNL Concentration: WNL Association: WNL Fund of Knowledge: WNL - Mood Mood: Depressed - Affect Affect: Blunted - Speech Speech: Soft - Language Language: Word Retrieval - Formal Thought Process Formal Thought Process: Hallucinations, Paranoia - Suicidal Ideation Suicidal Ideation: No - Homicidal Ideation Homicidal Ideation: No Goal/Treatment Plan - Goal/Treatment Plan Need for Continued Stay: Remain at risks for inpatient hospitalization, Discharge may exacerbated symptoms, Severe functional impairment Progress Toward Problem(s) and Goals/Treatment Plan: CBT for relapse prevention Encourage MAT [place] for abstinence Refer to rehab or IOP, and self-help groups Supportive therapy and psychoeducation As needed medications All risks, benefits and alternatives of the meds discussed, and the pt agreed and understood. Attend groups and activities Prolixin 10 mg PO BID Cogentin 1 mg PO QHS Lexapro 20 mg for depression Trazodone 100 mg po QHS Prolixin Decanoate 25 mg I/M Remeron 30 mg po QHS Estimated Date of D/C: 01/14/18
[2018-01-15] MEDS ORDERED: fluPHENAZine Decanoate 25 mg/mL Inj(5ml) IM ONE (15:45)
[2018-01-16] MEDS: Levothyroxine 50 MCG TAB PO SCH (06:59)
[2018-01-16] MEDS: Fluticasone Nasal 50 mcg/Spray NAS SCH ×2 (09:53→19:08)
[2018-01-16] MEDS: Saccharomyces Boulardi 250 mg Cap PO SCH ×2 (09:53→19:08)
[2018-01-16 16:31] VITALS: RESP 18
[2018-01-17] MEDS: Levothyroxine 50 MCG TAB PO SCH (06:38)
[2018-01-18] MEDS: Levothyroxine 50 MCG TAB PO SCH (05:47)
[2018-01-18 05:59] VITALS: BP 95/60; PULSE 67; TEMP 96.7; O2SAT 99
[2018-01-18] MEDS ORDERED: Vitamins A & D Oint UD Foilpak TOP PRN (20:47)
[2018-01-19] MEDS: Levothyroxine 50 MCG TAB PO SCH (05:44)
[2018-01-19] MEDS ORDERED: fluPHENAZine Decanoate 25 mg/mL Inj(5ml) IM ONE (10:45)
--- NOTE | 2018-01-19 12:03 | PCM.PYCHDC ---
Mental Status Examination - Mental Status Examination Orientation: Person, Place, Time Mood: Neutral Affect: Constricted Speech: Soft Attention: WNL Concentration: WNL Association: WNL Fund of Knowledge: WNL Formal Thought Process: No Impairment Description of patient's judgement and insight: good, fair Psychotic Thoughts and Behaviors: denies any AVH Suicidal Ideation: No Current Homicidal Ideation?: No Discharge Summary - Discharge Note Reason for Hospitalization: he patient is seen, chart reviewed and case discussed. This is a 27-year-old male, single with no child, currently homeless and unemployed. He says he was living in [facility] recently. He says he is "getting worse." He reports hearing voices telling him to kill himself and also feeling paranoid. He currently denies any suicidal or homicidal ideation but looks somewhat internally preoccupied. He also reports depressive symptoms but he states they are not to backs. He smokes marijuana and denies alcohol, cigarettes and other drugs. He is noncompliant with his medications. He was here in 2016 and was put on Risperdal. Past psych history: Diagnosed with schizophrenia or schizoaffective disorder. Admitted to psychiatry 3 times and had one suicide attempt when he was 22 years old by cutting his wrist. Consultations:: List each consultation separately and include: 1. Reason for request. 2. Findings. 3. Follow-up Summary of Hospital Course include:: 1. Description of specific treatment plan utilized for patients during their course of treatmen. 2. Summarize the time- course for resolution of acute symptoms and/or regressed behaviors. 3. Describe issues identified and worked on during hospitalization. 4. Describe medication utilized. 5. Describe medical problems identified and treated. 6. Reassessment of suicide risk Summary of Hospital Course: During the course of his stay, patient (pt) started progressively improving and he no longer remained irritable, depressed, suicidal and paranoid. His mood and paranoia were improved and he started attending groups and meetings and started socializing. Patient denied any feelings of hopelessness, helplessness, and worthlessness, denied any problem with the sleep or appetite, denied suicidal ideation or homicidal ideation. Pt denied any auditory or visual hallucinations. Some changes were made in his current medications and patient was discharged on following medications. He tolerated these medications very well and denied any side effects. He was discharged with a plan to follow up with [facility]. He was given Prolixin Decanoate 50 mg IM. Next dose due on 02/02/18. - Diagnosis (1) Paranoid schizophrenia Status: Acute - Final Diagnosis (DSM 5) Condition upon Discharge: FAIR DSM 5: Schizoaffective disorder-depressed Cannabis use disorder, severe Disposition: HOME/ ROUTINE Follow-up Treatment Plan: Education: Pt was educated and counseled about the risks and benefits of taking and not taking medications. Pt was educated and counseled about the risks of drinking and abusing drugs. Pt was educated and counseled to go to the ER or call 911 if pt develop suicidal ideation or homicidal ideation, worsening of symptoms or severe side effects of the meds. Prescriptions/Medication Reconciliation: Benztropine [Cogentin] 1 mg PO BID #60 tab Escitalopram [Lexapro] 20 mg PO DAILY #30 tab fluPHENAZine [Prolixin] 10 mg PO BID #60 tab Levothyroxine [Synthroid] 50 mcg PO DAILY@0630 #30 tab Mirtazapine [Remeron] 30 mg PO HS #30 tab Paliperidone Palmitate [Invega Sustenna] 234 mg IM ONCE #1 syr - Smoking Cessation Smoking Cessation Medication prescribed: No - Antipsychotic Medications Pt discharged on 2 or more routine antipsychotic medications: No
== END 2018-01-19 14:06 | disposition home or self-care (01) | DRG 430 ==
LOC: C.ER 21:00 → C.5E 12-27 01:08
PROVIDERS: ADMIT Psychiatry & Neurology Psychiatry; ATTEND Psychiatry & Neurology Psychiatry
PROC: GZ3ZZZZ Medication Management (ICD-10-PCS; principal; 2017-12-27)
PROC: GZHZZZZ Group Psychotherapy (ICD-10-PCS; 2017-12-27)
PROC: GZ56ZZZ Individual Psychotherapy, Supportive (ICD-10-PCS; 2017-12-27)
PROC: HZ99ZZZ Pharmacotherapy for Substance Abuse Treatment, Other Replacement Medication (ICD-10-PCS; 2017-12-27)
DX: F25.1 Schizoaffective disorder, depressive type (principal); F12.20 Cannabis dependence, uncomplicated; D72.829 Elevated white blood cell count, unspecified; E03.9 Hypothyroidism, unspecified; J45.909 Unspecified asthma, uncomplicated; Z59.0 Homelessness; Z81.8 Family history of other mental and behavioral disorders; Z79.899 Other long term (current) drug therapy; Z91.14 Patient's other noncompliance with medication regimen

== ENCOUNTER 2019-01-09 01:03 | Inpatient (IN) | payer MEDICAID, OTHER ==
[2019-01-09 01:03] VITALS: BMI 30.9
--- NOTE | 2019-01-09 02:37 | C.PDOC ---
History Of Present Illness 28 year old male with PMHx of depression presents to the ED for evaluation of auditory hallucinations. Patient states he is hearing voices that are telling him to hurt himself. Patient denies HI, CP, SOB, injury, fall, trauma. Time Seen by Provider: 01/09/19 02:11 Chief Complaint (Nursing): Psychiatric Evaluation History Per: Patient History/Exam Limitations: no limitations Onset/Duration Of Symptoms: Days Current Symptoms Are (Timing): Still Present Suicide/Self Injury Attempted (Context): None Associated Symptoms: Depression, Paranoia, Suicidal Thoughts, Suicidal Plan Recent travel outside of the [employer] States: No Additional History Per: Patient, EMS Past Medical History Reviewed: Historical Data, Nursing Documentation, Vital Signs Vital Signs: Last Vital Signs Temp 98.4 F 01/09/19 01:10 Pulse 88 01/09/19 01:10 Resp 18 01/09/19 01:10 BP 116/79 01/09/19 01:10 Pulse Ox 100 01/09/19 01:10 - Medical History PMH: Anxiety, Asthma, Depression, Hypothyroidism (on Levothyroxine), Paranoia, Schizophrenia Denies: Arthritis, Diabetes, Fractures, Hepatitis, HIV, HTN, Hyperthyroidism, Osteoporosis, Chronic Kidney Disease, Rheumatoid Arthritis, Seizures, Sexually Transmitted Disease Surgical History: No Surg Hx - [facility] Procedures GROUP PSYCHOTHERAPY (01/24/18) INDIVIDUAL PSYCHOTHERAPY, SUPPORTIVE (01/24/18) MEDICATION MANAGEMENT (12/27/17) PHARMACOTHERAPY FOR SUBSTANCE ABUSE, OTH REPLACE MED (12/27/17) PSYCHIAT DRUG THERAP NEC (05/11/14) Family History: States: Unknown Family Hx - Social History Hx Tobacco Use: No Hx Alcohol Use: Yes Hx Substance Use: Yes (mj use in october) - Immunization History Hx Tetanus Toxoid Vaccination: No Hx Influenza Vaccination: No Hx Pneumococcal Vaccination: No Review Of Systems Constitutional: Negative for: Fever, Chills Cardiovascular: Negative for: Chest Pain, Palpitations Respiratory: Negative for: Shortness of Breath Gastrointestinal: Negative for: Nausea, Vomiting, Abdominal Pain Skin: Negative for: Rash Neurological: Negative for: Weakness, Numbness Psych: Positive for: Depression, Psychosis, Suicidal ideation Physical Exam - Physical Exam Appears: Non-toxic, No Acute Distress Skin: Normal Color, Warm, Dry Head: Atraumatic, Normacephalic Eye(s): bilateral: Normal Inspection Neck: Normal ROM, Supple Chest: Symmetrical Cardiovascular: Rhythm Regular Respiratory: Normal Breath Sounds, No Rales, No Rhonchi, No Wheezing Gastrointestinal/Abdominal: Soft, No Tenderness, No Guarding, No Rebound Extremity: Normal ROM, No Tenderness, No Swelling Neurological/Psych: Oriented x3, Normal Speech, Normal Cognition Gait: Steady ED Course And Treatment - Laboratory Results Result Diagrams: 01/09/19 02:34 01/09/19 02:34 O2 Sat by Pulse Oximetry: 100 (ON RA) Pulse Ox Interpretation: Normal Medical Decision Making Medical Decision Making: Plan: * Labs * UA * Crisis eval The patient is medically cleared for psych admission. Disposition - Disposition Referrals: Non [facility] Provider, [Primary Care Provider] - Disposition: HOSPITALIZED Disposition Time: 03:29 Condition: STABLE Forms: [facility] (Khmer) - POA Present On Arrival: None - Clinical Impression Clinical Impression: Suicidal ideation, Schizophrenia, Auditory hallucinations - PA / [employer]NA[employer]TER / Resident Statement MD/DO has reviewed & agrees with the documentation as recorded. - Scribe Statement The provider has reviewed the documentation as recorded by the Scribe Kevin Hwang All medical record entries made by the Scribe were at my direction and personally dictated by me. I have reviewed the chart and agree that the record accurately reflects my personal performance of the history, physical exam, medical decision making, and the department course for this patient. I have also personally directed, reviewed, and agree with the discharge instructions and disposition.
[2019-01-09 02:41] LABS: SQUAMOUS EPITHIAL < 1 /hpf (0-5); URINE BILIRUBIN NEGATIVE (NEGATIVE); URINE BLOOD NEGATIVE (NEGATIVE); URINE CLARITY Clear (Clear); URINE COLOR Yellow (YELLOW); URINE GLUCOSE (UA) NORMAL (Normal); URINE LEUKOCYTE ESTERASE NEG Leu/uL (Negative); URINE PROTEIN NEGATIVE (NEGATIVE); URINE UROBILINOGEN NORMAL mg/dL (0.2-1.0)
[2019-01-09 02:42] LABS: BASO % 0.3 % (0.0-2.0); EOS # 0.1 K/uL (0.0-0.7); EOS % 3.3 % (0.0-4.0); LYMPH # 2.1 K/uL (1.0-4.3); LYMPH % 48.4 % (20.0-40.0); MEAN CELL VOLUME 91.1 fL (80.0-94.0); MEAN CORPUSCULAR HEMOGLOBIN 30.5 pg (27.0-31.0); MEAN CORPUSCULAR HGB CONC 33.5 g/dL (33.0-37.0); MEAN PLATELET VOLUME 9.7 fL (7.2-11.7); MONO # 0.5 K/uL (0.0-0.8); MONO % 10.6 % (0.0-10.0); NEUT # 1.6 K/uL (1.8-7.0); NEUT % 37.4 % (50.0-75.0); NRBC % 0.1 % (0.0-2.0); RBC 4.59 Mil/uL (4.40-5.90); RED CELL DISTRIBUTION WIDTH 12.6 % (11.5-14.5); WHITE BLOOD COUNT 4.3 K/uL (4.8-10.8)
[2019-01-09 02:52] LABS: ALB/GLOB RATIO 1.6 (1.0-2.1); ALBUMIN 4.7 g/dL (3.5-5.0); ALT/SGPT 15 U/L (21-72); AST/SGOT 21 U/L (17-59); BLOOD UREA NITROGEN 16 mg/dL (9-20); CALCIUM 8.9 mg/dl (8.6-10.4); GFR NON-AFRICAN AMERICAN > 60
[2019-01-09 02:55] LABS: BARBITURATES, UR NEGATIVE (NEGATIVE); BENZODIAZEPINES, UR NEGATIVE (NEGATIVE); OPIATES, UR NEGATIVE (NEGATIVE); PHENCYCLIDINE, UR NEGATIVE (NEGATIVE)
--- NOTE | 2019-01-09 04:40 | PCM.BM ---
<Akira Jeronimo Bonnie - Last Filed: 01/09/19 04:37> Treatment Plan Problems - Problems identified on initial assessmt Suicidal Ideation Date Initiated: 01/09/19 Time Initiated: 04:15 Assessment reference: NA Status: Monitor Command/Auditory Hallucinations Date Initiated: 01/09/19 Time Initiated: 04:15 Assessment reference: NA Status: Active Medication Nonadherence Date Initiated: 01/09/19 Time Initiated: 04:15 Assessment reference: NA Status: Active Treatment assets and liabiliti Patient Assests: cooperative, ADL independent, negotiates basic needs Patient Liabilities: financial problems, poor support system - Milieu Protocol Maintain good personal hygiene: daily Encourage regular showers, daily Remind patient to perform daily oral care, every shift Assist patient to perform ADL's Conduct patient checks and document Observation sheet: Q15 minutes Maintain personal safety: every shift Educate patient to report safety concerns to staff, every shift Monitor environment for contraband/sharps Medication safety: Monitor for expected outcome, potential side effects: every shift, Assess barriers to learning: every shift, Assess readiness for medication education: every shift <Zakia Weinberg - Last Filed: 01/11/19 12:12> - Diagnosis (1) Schizophrenia Status: Acute Interventions: 01/11/19 12:12 * Assess/adjust medications daily and /or as needed * See patient on an individual basis 7x/week to assess status of hallucinations * Discuss risks, benefits, side effects and alternatives of medications *
[2019-01-09 06:50] VITALS: O2SAT 97
[2019-01-11 06:29] VITALS: TEMP 98.4
--- NOTE | 2019-01-11 10:49 | PCM.PYCHPN ---
Psychiatric Progress Note - Psychiatric Progress Note Patient seen today, length of contact: 15 min Patient Chief Complaint: I was hearing voices Problems Identified/Issues Discussed: Patient was seen and evaluated, chart reviewed and discussed the staff. Patient reports auditory hallucinations and paranoia. As per the staff he remained isolative and withdrawn and appears paranoid and delusional. He still appears somewhat disorganized and internally preoccupied. He is taking medication but denies any side effects. Symptoms are improving gradually but he needs to stay longer for the stabilization. Supportive therapy was given. Medication Change: Yes Medical Record Reviewed: Yes Mental Status Examination - Cognitive Function Orientation: Person, Place, Situation, Time Memory: Intact Attention: WNL Concentration: Poor Association: Loose Fund of Knowledge: Poor - Mood Mood: Anxious - Affect Affect: Flat - Speech Speech: Soft - Formal Thought Process Formal Thought Process: Hallucinations, Delusions, Paranoia, Loosening of associations - Suicidal Ideation Suicidal Ideation: No - Homicidal Ideation Homicidal Ideation: No Goal/Treatment Plan - Goal/Treatment Plan Need for Continued Stay: Remain at risks for inpatient hospitalization Progress Toward Problem(s) and Goals/Treatment Plan: Schizophrenia paranoid type continues CBT Psychoeducation Supportive therapy and group therapy Risperdal for psychosis Cogentin for EPS Hydroxyzine for anxiety Trazodone for insomnia - Smoking Cessation Smoking Cessation Initiated: No
[2019-01-12 06:49] VITALS: RESP 18
[2019-01-12] MEDS ORDERED: Pneumococcal 23-Valent Vaccine IM ONE (10:00)
[2019-01-12] MEDS ORDERED: Influenza Vaccine 60 mcg/0.5 mL SYR (4YR UP) IM ONE (10:00)
[2019-01-13 16:00] VITALS: BP 133/82; PULSE 105
--- NOTE | 2019-01-13 23:41 | PCM.PYCHPN ---
Psychiatric Progress Note - Psychiatric Progress Note Patient seen today, length of contact: 15 min Patient Chief Complaint: I am feeling better Problems Identified/Issues Discussed: Patient was seen and evaluated, chart reviewed and discussed the staff. Patient reports some improvement in the hallucinations and paranoia. However he remained isolative and withdrawn. But he appears more organized and less internally preoccupied than before. He is taking medication but denies any side effects. Symptoms are improving gradually but he needs to stay longer for the stabilization. Supportive therapy was given. He signed a 48 hours notice to get discharge within 2 days. Medication Change: Yes Medical Record Reviewed: Yes Mental Status Examination - Cognitive Function Orientation: Person, Place, Situation, Time Memory: Intact Attention: WNL Concentration: WNL Association: Loose Fund of Knowledge: Poor - Mood Mood: Anxious - Affect Affect: Flat - Speech Speech: Soft - Formal Thought Process Formal Thought Process: Loosening of associations - Suicidal Ideation Suicidal Ideation: No - Homicidal Ideation Homicidal Ideation: No Goal/Treatment Plan - Goal/Treatment Plan Need for Continued Stay: Remain at risks for inpatient hospitalization Progress Toward Problem(s) and Goals/Treatment Plan: Schizophrenia paranoid type continues CBT Psychoeducation Supportive therapy and group therapy Risperdal for psychosis Cogentin for EPS Hydroxyzine for anxiety Trazodone for insomnia
--- NOTE | 2019-01-14 10:13 | PCM.PYCHDC ---
Mental Status Examination - Mental Status Examination Orientation: Person, Place, Situation, Time Memory: Intact Mood: Neutral Affect: Constricted Speech: Soft Attention: WNL Concentration: WNL Association: WNL Fund of Knowledge: WNL Formal Thought Process: No Impairment Description of patient's judgement and insight: good, fair Psychotic Thoughts and Behaviors: denies any AVH Suicidal Ideation: No Current Homicidal Ideation?: No Discharge Summary - Discharge Note Consultations:: List each consultation separately and include: 1. Reason for request. 2. Findings. 3. Follow-up Summary of Hospital Course include:: 1. Description of specific treatment plan utilized for patients during their course of treatmen. 2. Summarize the time- course for resolution of acute symptoms and/or regressed behaviors. 3. Describe issues identified and worked on during hospitalization. 4. Describe medication utilized. 5. Describe medical problems identified and treated. 6. Reassessment of suicide risk - Diagnosis (1) Schizophrenia Current Visit: Yes Status: Acute - Final Diagnosis (DSM 5) Condition upon Discharge: STABLE DSM 5: Schizophrenia paranoid type continues Disposition: HOME/ ROUTINE Follow-up Treatment Plan: Schizophrenia paranoid type continues CBT Psychoeducation Supportive therapy and group therapy Risperdal for psychosis Cogentin for EPS Hydroxyzine for anxiety Trazodone for insomnia Prescriptions/Medication Reconciliation: Benztropine [Cogentin] 1 mg PO BID #60 tab risperiDONE [RisperDAL Tab] 2 mg PO BID #60 tab traZODone [Desyrel] 50 mg PO HS PRN #30 tab PRN Reason: Insomnia - Smoking Cessation Smoking Cessation Medication prescribed: No - Antipsychotic Medications Pt discharged on 2 or more routine antipsychotic medications: No
== END 2019-01-14 13:02 | disposition home or self-care (01) | DRG 430 ==
LOC: C.ER 01:03 → SUPCPDRO 01:03 → C.5E 03:28
PROVIDERS: ADMIT Psychiatry & Neurology Psychiatry; ATTEND Psychiatry & Neurology Psychiatry
PROC: GZHZZZZ Group Psychotherapy (ICD-10-PCS; principal; 2019-01-09)
PROC: GZ56ZZZ Individual Psychotherapy, Supportive (ICD-10-PCS; 2019-01-09)
DX: F20.0 Paranoid schizophrenia (principal); G47.00 Insomnia, unspecified; E03.9 Hypothyroidism, unspecified; J45.909 Unspecified asthma, uncomplicated; R45.851 Suicidal ideations